=== PATIENT | male | born 1935 | race Caucasian/White ===

== ENCOUNTER 2017-07-21 00:12 | Inpatient (IN) | payer OTHER ==
[~2017-07-21] VITALS: Ht 170.2 cm; Wt 112.9 kg
[~2017-07-21 00:12] MED LIST: AUGMENTIN 500M500 MG PO; AUGMENTIN 875875 MG PO; COUMADIN 1 MG TA1 MG PO; COUMADIN 3 MG TA3 MG PO; COZAAR 25MG TAB25 MG PO; DEXAMETHASONE PO; FERROUS SULFAT325 M3 PO; FINASTERIDE5 M1 PO; GLIPIZIDE5 MG PO; HYDRODIURIL 112.5 M1 PO; LOTRISONE CREAM15 G1 TOP; METOPROLOL TART25 M1 PO; NORVASC5 M1 PO; PERCOCET 325 MG1 TA2 PO; PRINIVIL 5MG5 MG PO; TERAZOSIN HCL2 M1 PO; VALTREX 500MG500 MG PO; VITAMIN C500 M6 PO; VITAMIN D1000 IU PO; VITAMIN D250000 UNIT PO; ZOCOR40 M1 PO
[2017-07-21 01:11] LABS: ABSOLUTE BASOPHIL COUNT 0 /CUMM (0.0-0.2); ABSOLUTE EOSINOPHIL COUNT 0 /CUMM (0.0-0.7); ABSOLUTE GRANULOCYTE CT 4.8 /CUMM (1.4-6.5); ABSOLUTE LYMPH COUNT 0.8 /CUMM (1.2-3.4); ABSOLUTE MONOCYTE COUNT 0.1 /CUMM (0.10-0.60); BASOPHIL % 0.1 % (0.0-2.0); EOSINOPHIL % 0.7 % (0-5); HEMATOCRIT 39.4 % (42-52); MEAN CORPUSCULAR HGB 28.1 PG (27.0-31.0); MEAN CORPUSCULAR HGB CONC 32.5 G/DL (33.0-37.0); MEAN CORPUSCULAR VOLUME 86.4 FL (80.0-94.0); MEAN PLATELET VOLUME 7.5 FL (7.4-10.4); RBC DISTRIBUTION WIDTH 15.1 % (11.5-14.5); RED BLOOD CELL CT 4.56 /CUMM (4.70-6.10); WHITE BLOOD CELL COUNT 5.7 /CUMM (4.8-10.8)
--- NOTE | 2017-07-21 01:15 | ED GI/GU/ABDOMINAL COMPLAINT ---
History of Present Illness General Chief Complaint: General Adult Stated Complaint: RECTAL BLEEDING Source: patient, family, old records Exam Limitations: no limitations Vital Signs & Intake/Output Vital Signs & Intake/Output Vital Signs Date Time Temp Pulse Resp B/P B/P Pulse O2 O2 Flow FiO2 Mean Ox Delivery Rate 07/21 0327 96.0 95 22 136/85 07/21 0252 96.7 86 18 128/63 96 Room Air 07/21 0121 84 20 123/66 94 Room Air Room Air 07/21 0100 94 Room Air 07/21 0020 95.5 88 20 112/76 89 Room Air Allergies Coded Allergies: NO KNOWN ALLERGIES (09/05/13) Reconcile Medications Ascorbic Acid (Vitamin C) 500 MG TAB 1 TAB PO DAILY SUPPLEMENT (Reported) Cyanocobalamin (Vitamin B-12) 1,000 MCG TABLET 1 TAB PO DAILY SUPPLEMENT ( Reported) Donepezil HCl (Aricept) 10 MG TABLET 1 TAB PO QPM BRAIN (Reported) ERGOCALCIFEROL (VITAMIN D2) (Vitamin D2) 50,000 IU SGL 50,000 IU PO Q30D VITAMIN D SUPPLEMENT (Reported) Ferrous Sulfate 325 MG TAB 1 TAB PO DAILY SUPPLEMENT (Reported) Finasteride 5 MG TABLET 1 TAB PO DAILY bph (Reported) Furosemide (Lasix) 20 MG TABLET 1 TAB PO DAILY PRN LEG SWEELING (Reported) Losartan (Cozaar) 25 MG TAB 1 TAB PO DAILY HTN Lotrisone (Lotrisone Cream) 1 %-0.05 % CREAM..G. 1 KRIS TOP TID YEAST INFECTION apply to affected area(s) X 10 DAYS Magnesium Oxide 400 MG TABLET 1 TAB PO BID SUPPL (Reported) Metoprolol Tartrate 25 MG TABLET 1 TAB PO BID HEART (Reported) Simvastatin 40 MG TABLET 1 TAB PO QPM CHOLESTEROL (Reported) Terazosin HCl 2 MG CAPSULE 4 CAP PO QPM BP (Reported) Warfarin Sodium (Coumadin) 3 MG TAB 1 TAB PO DAILY blood thinner PLEASE contact MD to check INR regularly. Dose accordingly Triage Note: 81YO MALE TO TRIAGE W/CO RECTAL BLEEDING "ALL DAY THAT'S WORSE TONITE" Triage Nurses Notes Reviewed? yes Onset: Just prior to arrival Duration: hour(s):, constant, continues in ED Timing: recent history Quality/Severity: moderate, severe Activities at Onset: rest Prior Abdominal Problems: none Past Sexual History: Unobtainable at this time No Modifying Factors: none HPI: Shortly prior to admission patient had 4 episodes of bright red blood per rectum. He denies nausea vomiting diarrhea abdominal pain fever chills chest pain cough shortness of breath headache dysuria rash dizziness. Past History Travel History Traveled to [place] past 21 day No Medical History Any Pertinent Medical History? see below for history Neurological: NONE EENT: LARYNGEAL AND PHARYNGEAL HERPES Cardiovascular: AFIB, CHF, hypertension, HI CHOL Respiratory: LARYNGEAL HERPES Gastrointestinal: GERD Hepatic: NONE Renal: benign prost hyperplasia Musculoskeletal: BILATERAL KNEE REPLACEMENTS Psychiatric: NONE Endocrine: diabetes Blood Disorders: NONE Cancer(s): NONE DIRECTOR APPOINTMENT/Reproductive: NONE Other Medical Hx: AORTIC ANEURYSM History of MRSA: No History of VRE: No History of CDIFF: No Surgical History Surgical History: cholecystectomy, RIGHT NEPHRECTOMY LOBECTOMY Psychosocial History Who do you live with Spouse Services at Home None What is your primary language Panamanian Tobacco Use: Never used Family History Family History, If Any: Relation not specified for: *No pertinent family history Hx Contributory? No Review of Systems Review of Systems Constitutional: Reports: no symptoms. EENTM: Reports: no symptoms. Respiratory: Reports: no symptoms. Cardiovascular: Reports: no symptoms. GI: Reports: see HPI. Genitourinary: Reports: no symptoms. Musculoskeletal: Reports: no symptoms. Skin: Reports: no symptoms. Neurological/Psychological: Reports: no symptoms. Hematologic/Endocrine: Reports: no symptoms. Immunologic/Allergic: Reports: no symptoms. All Other Systems: Reviewed and Negative Physical Exam Physical Exam General Appearance: well developed/nourished, no apparent distress, alert, awake , anxious, mild distress, obese Head: atraumatic, normal appearance Eyes: Bilateral: normal appearance, PERRL, EOMI, normal inspection. Ears, Nose, Throat, Mouth: hearing grossly normal, moist mucous membrane Neck: normal inspection, supple, full range of motion, normal alignment Respiratory: normal breath sounds, chest non-tender, no respiratory distress, quiet respiration, lungs clear Cardiovascular: normal peripheral pulses, irregularly irregular, norml femoral pulses equa Peripheral Pulses: 4+ carotid (R), 4+ carotid (L) Gastrointestinal: normal bowel sounds, soft, non-tender, no organomegaly Rectal: normal rectal tone, blood without stool Male Genitals: normal genitalia Back: normal inspection, normal range of motion Extremities: normal range of motion, no ligament instability Neurologic/Psych: no motor/sensory deficits, awake, alert, oriented x 3, normal gait, normal mood/affect, 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 No Sepsis Present: No Sepsis Focused Exam Completed? No Progress Differential Diagnosis: diverticulitis, gastritis, hemorrhoids Plan of Care: Orders Procedure Date/time Status Nothing by Mouth 07/21 B Active CBC WITHOUT DIFFERENTIAL 07/21 1300 Active PARTIAL THROMBOPLASTIN TIME 07/21 0700 Active LACTIC ACID 07/21 0700 Active ICU LAB BUNDLE 07/21 0700 Active CBC WITHOUT DIFFERENTIAL 07/21 0700 Active PROTHROMBIN TIME 07/21 0600 Active PROTHROMBIN TIME 07/21 0457 Active BLOOD PRODUCT PICKUP 07/21 0444 Active US-EXT BILAT VENOUS DOPPLER 07/21 0403 Active LACTIC ACID 07/21 0352 Active Wound Care/Dressing 07/21 0343 Complete Weight 07/21 0343 Active VTE Mechanical Prophylaxis 07/21 0343 Active Vital Signs 07/21 0343 Active Turn and Reposition 07/21 0343 Active Drains/Tubes 07/21 0343 Complete Teach/Educate 07/21 0343 Active Skin Integrity Protocol 07/21 0343 Active Skin/Pressure Ulcer Assess (Sk 07/21 0343 Active Precautions 07/21 0343 Active Pain Treatment and Response 07/21 0343 Active Nutritional Intake, Monitor 07/21 0343 Active Isolation 07/21 0343 Active CIWA 07/21 0343 Active Patient Care Conference 07/21 0343 Active Activity/Ambulation 07/21 0343 Active BLOOD PRODUCT PICKUP 07/21 0333 Active Add-on Test (ER Only) 07/21 0316 Active Pathway - chart 07/21 0255 Active House Staff 07/21 0255 Active Code Status 07/21 0255 Complete Code Status 07/21 0255 Active LEUKOCYTE POOR (PACKED CELLS) 07/21 0246 Active BLOOD PRODUCT PICKUP 07/21 0238 Active Patient Data 07/21 0215 Active Admit to inpatient 07/21 0214 Active BLOOD PRODUCT PICKUP 07/21 0207 Active TYPE & SCREEN (NOT X-MATCH) 07/21 0202 Active FRESH FROZEN PLASMA 07/21 0202 Active Intake & Output 07/21 0122 Active TROPONIN LEVEL 07/21 0100 Complete MAGNESIUM 07/21 0100 Complete LACTIC ACID 07/21 0100 Complete PARTIAL THROMBOPLASTIN TIME 04/22 0039 Complete PROTHROMBIN TIME 07/21 38 Complete COMPREHENSIVE METABOLIC PANEL 07/21 38 Complete CBC WITHOUT DIFFERENTIAL 07/21 38 Complete EKG 07/21 38 Active Lab Add-on Test 07/21 UNK Active VTE Mechanical Prophylaxis 07/21 UNK Active Current Medications Sig/Sylvie Start time Last Medication Dose Stop Time Status Admin Sodium Chloride 1,000 ML Q13H 07/21 0500 AC (Normal Saline 0.9%) Acetaminophen 1,000 MG Q8P PRN 07/21 0315 AC (Ofirmev) N/A 1 UNIT (No Carrier) Ondansetron HCl 4 MG Q6P PRN 07/21 031 AC (Zofran) Pantoprazole Sodium 40 MG BID 07/21 0300 AC 07/21 (Protonix) 07/23 0901 0305 Anti-Inhibitor 2,400 UNIT ONCE 07/21 0130 AC 07/21 Coagulant Complex 07/21 0800 0411 (Kcentra) Anti-Inhibitor 2,400 UNIT ONCE 07/21 0000 CAN Coagulant Complex 07/21 2359 (Kcentra) Anti-Inhibitor 2,400 UNIT ONCE 07/21 0000 CAN Coagulant Complex 07/21 2359 (Kcentra) Laboratory Tests 07/21/17 0500: PT Pending, INR Pending 07/21/17 0100: Anion Gap 8, Estimated GFR 26 L, BUN/Creatinine Ratio 15.0, Glucose 171 H, Lactic Acid 2.3 H, Calcium 9.2, Magnesium 1.6, Total Bilirubin 0.6, AST 18, ALT 35, Alkaline Phosphatase 77, Troponin I 0.04, Total Protein 5.1 L, Albumin 2.8 L, Globulin 2.3, Albumin/Globulin Ratio 1.2, PT 24.3 H, INR 2.21 H, APTT 33, CBC w Diff NO MAN DIFF REQ, RBC 4.56 L, MCV 86.4, MCH 28.1, MCHC 32.5 L, RDW 15.1 H, MPV 7.5, Gran % 83.3 H, Lymphocytes % 13.9 L, Monocytes % 2.0, Eosinophils % 0.7, Basophils % 0.1, Absolute Granulocytes 4.8, Absolute Lymphocytes 0.8 L, Absolute Monocytes 0.1, Absolute Eosinophils 0, Absolute Basophils 0 Diagnostic Imaging: Viewed by Me: CT Scan. Discussed w/RAD: CT Scan. Radiology Impression: 1. Colonic and small bowel diverticulosis, without definite free air. 2. Left lower pole renal calculi without hydronephrosis. Status post right nephrectomy. 3. Trace right pleural effusion. Initial ED EKG: AFIB, no ST T wave changes Prior EKG: unchanged Rhythm Strip: atrial fibrillation Departure Departure Time of Disposition: 113 Disposition: STILL A PATIENT Condition: Stable Clinical Impression Primary Impression: GI bleed Secondary Impressions: Anticoagulated with warfarin Referrals: Allen Spain MD (PCP/Family) Departure Forms: Customer Survey General Discharge Information Admission Note Spoke With: Allen Spain MD Documentation of Exam: Documentation of any treatments & extenuating circumstances including Concerns Regarding Discharge (functional status, medication knowledge or non-compliance, living conditions, etc.) that warrant an admission rather than observation: GI evaluation serial lab exam ICU monitoring medication adjustment continuing care discharge planning.
[2017-07-21 01:19] LABS: PT 24.3 SEC (9.4-12.5); PTT 33 SEC (25-37)
[2017-07-21 01:30] LABS: GRANULOCYTE % 83.3 % (42.2-75.2); PLATELET COUNT 99 /CUMM (130-400)
--- NOTE | 2017-07-21 02:21 | History & Physical ---
See Addendum General Information and HPI MD Statement: I have seen and personally examined PEARL MAZA and documented this H&P. The patient is a 81 year old M who presented with a patient stated chief complaint of [gi bleed]. Source of Information: patient, family, old records Exam Limitations: no limitations History of Present Illness: 81-year-old gentleman with past medical history of DVT and A. 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 with CKD, hyperlipidemia, history of gallbladder removal, bilateral knee replacement chronic anemia, BPH, parotid tumor removal Came to the hospital with chief complaint of acute bleeding per rectum. Information was obtained from patient's and himself. According to the patient started having bloody bowel movement around 10:30 PM before, to the hospital which was bright red blood mixed with stools and he had 5 more episodes of bloody bowel movement before coming to the hospital and he had another episode of bloody bowel movement which was bright red blood mixed with the stool in the hospital. (totaL volume loss 1500 cc per ED staff). Patient has a history of atrial fibrillation and DVT post surgery was being taking warfarin daily. At the moment patient denied any episodes of nausea, vomiting, constipation, severe abdominal pain, chest pain, shortness of breath, fevers, chills, any episode of previous bloody bowel movements before. Last colonoscopy was in 2005 which is unavailable to retrieveSuhail Avendano in ED upon admission was temperature 96.7, pulse 86, respiration 18, blood pressure 128/63, pulse ox 96% on room air Labs are notable for hemoglobin 12.4, platelet 99 (chronically low), creatinine 2.4 which is baseline, BUN 36, chloride 109, lactic acid 2.3, total pr 5.1, INR 2.21 EKG showed A. fib, heart rate 80, QTc 448, flat T waves in precordial leads Allergies/Medications Allergies: Coded Allergies: NO KNOWN ALLERGIES (09/05/13) Home Med list Ascorbic Acid (Vitamin C) 500 MG TAB 1 TAB PO DAILY SUPPLEMENT (Reported) Cyanocobalamin (Vitamin B-12) 1,000 MCG TABLET 1 TAB PO DAILY SUPPLEMENT ( Reported) Donepezil HCl (Aricept) 10 MG TABLET 1 TAB PO QPM BRAIN (Reported) ERGOCALCIFEROL (VITAMIN D2) (Vitamin D2) 50,000 IU SGL 50,000 IU PO Q30D VITAMIN D SUPPLEMENT (Reported) Ferrous Sulfate 325 MG TAB 1 TAB PO DAILY SUPPLEMENT (Reported) Finasteride 5 MG TABLET 1 TAB PO DAILY bph (Reported) Furosemide (Lasix) 20 MG TABLET 1 TAB PO DAILY PRN LEG SWEELING (Reported) Losartan (Cozaar) 25 MG TAB 1 TAB PO DAILY HTN Lotrisone (Lotrisone Cream) 1 %-0.05 % CREAM..G. 1 KRIS TOP TID YEAST INFECTION apply to affected area(s) X 10 DAYS Magnesium Oxide 400 MG TABLET 1 TAB PO BID SUPPL (Reported) Metoprolol Tartrate 25 MG TABLET 1 TAB PO BID HEART (Reported) Simvastatin 40 MG TABLET 1 TAB PO QPM CHOLESTEROL (Reported) Terazosin HCl 2 MG CAPSULE 2 CAP PO QPM BP (Reported) Warfarin Sodium (Coumadin) 3 MG TAB 1 TAB PO DAILY blood thinner PLEASE contact MD to check INR regularly. 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 spouse Services at Home: None Primary Language: Setswana Functional Ability ADLs Independent: dressing, eating, toileting, bathing. Ambulation: independent IADLs Independent: shopping, housework, finances, food prep, telephone, transportation , medication admin. Sexual History Past Sexual History Unobtainable at this time Review of Systems Review of Systems Constitutional: Reports: see HPI. Exam & Diagnostic Data Last 24 Hrs of Vital Signs/I&O Vital Signs Date Time Temp Pulse Resp B/P B/P Pulse O2 O2 Flow FiO2 Mean Ox Delivery Rate 07/21 0327 96.0 95 22 136/85 07/21 0252 96.7 86 18 128/63 96 Room Air 07/21 0121 84 20 123/66 94 Room Air Room Air 07/21 0100 94 Room Air 07/21 0020 95.5 88 20 112/76 89 Room Air Intake & Output 07/21 0800 07/21 0000 07/20 1600 Intake Total 332 Output Total Balance 332 Intake, Blood 332 Product Number 1 Bowel Movements Patient 96.162 kg Weight Physical Exam General Appearance Alert, Oriented X3, Cooperative Cardiovascular Normal S1, Normal S2, irrigular Lungs limited exam clear in the front Abdomen distented mildy tender in umbilical area no-rebound Neurological Normal Speech, Strength at 5/5 X4 Ext Extremities severe BL leg edema due to CKD Assessment/Plan Assessment: 81-year-old gentleman with past medical history of DVT and A. 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 6 bloody bowel movement last one was in the hospital (totaL volume loss 1500 cc per ED staff). Patient has a history of atrial fibrillation and DVT post surgery was being taking warfarin daily. Last colonoscopy was in 2005 which is unavailable to retrieve. Last echocardiogram showed EF of 50-55%, last PFT showed mild obstructive disease, patient also has history of right upper lobe nodule removal in the lung. Avendano in ED upon admission was temperature 96.7, pulse 86, respiration 18, blood pressure 128/63, pulse ox 96% on room air Labs are notable for hemoglobin 12.4, platelet 99 (chronically low), creatinine 2.4 which is baseline, BUN 36, chloride 109, lactic acid 2.3, total pr 5.1, INR 2.21 EKG showed A. fib, heart rate 80, QTc 448, flat T waves in precordial leads Assessment Acute lower GI bleed Elevated lactic acid History of hypertension History of A. fib on warfarin History of dementia? History of BPH On magnesium supplementation Low platelets Plan Admit to ICU and check vitals q. 1 2 large-bore IV access Patient was being administered K Centra and 4 units of FFP which was prescribed by ED physician We will also give 2 units of blood We will put the patient on IV maintenance fluids after the blood products Hold all oral medications for now Patient heart rate increases we will give IV Lopressor 5 mg as needed Bowel prep per GI recommendation with 2 pills of Dulcolax and 1 gallon of GoLYTELY CBCs every 6 hours ICU bundle in the morning Trend lactic acid until normalized Check magnesium and troponin Stat CT of abdomen and pelvis to rule out any other pathology Watch the kidney function closely Ultrasound of the legs for DVT before using a LPS No anticoagulation for now CRCU consult in AM NPO, DNR/DNI, IV Tylenol for pain, no anticoagulation or alps for now until DVT has been ruled out As Ranked By This Provider Problem List: 1. GI bleed Core Measures/Misc (12/16) Acute Coronary Syndrome ACS Diagnosis: No Congestive Heart Failure Congestive Heart Failure Diagnosis No Cerebrovascular Accident CVA/TIA Diagnosis: No VTE (View Protocol) VTE Risk Factors Acute Medical Illness No Mechanical VTE Prophylaxis d/t DVT (suspected/known) (hx of DVT) No VTE Pharm Prophylaxis d/t Bleeding (Active) Sepsis (View protocol) Sepsis Present: No
[2017-07-21] MEDS ORDERED: VITAMIN B-121000 MC3 PO (02:49)
[2017-07-21] MEDS ORDERED: MAGNESIUM OXID400 M1 PO (02:49)
[2017-07-21] MEDS ORDERED: ARICEPT10 M1 PO (02:50)
[2017-07-21] MEDS ORDERED: LASIX20 M1 PO (02:50)
--- NOTE | 2017-07-21 04:58 | CT SCAN REPORT ---
EXAMINATION: CT ABDOMEN AND PELVIS WITHOUT CONTRAST CLINICAL INFORMATION: GI bleeding and abdominal pain, rule out perforation COMPARISON: 03/02/2015 TECHNIQUE: Multidetector volumetric imaging was performed from the superior aspect of the liver through the pubic symphysis. Sagittal and coronal reformatted images were obtained on the technologist's workstation. DLP: 1155.87 mGy-cm FINDINGS: LUNG BASES: There is mild dependent atelectasis at the lung bases. A trace right pleural effusion is present. LIVER, GALLBLADDER, AND BILIARY TREE: The liver is normal in size, shape, and attenuation. No focal hepatic lesion or biliary ductal dilatation is present. Patient is status post cholecystectomy. PANCREAS: There is partial fatty atrophy of the pancreas. SPLEEN: Unremarkable. ADRENAL GLANDS: Unremarkable. KIDNEYS AND URETERS: Patient is status post right nephrectomy. No left hydronephrosis. There is redemonstration of a few hypoattenuating left renal lesions favoring cysts, largest measuring approximately 9.0 cm in diameter. No hydronephrosis. There are left lower pole renal calculi measuring up to 0.9 cm. BLADDER: Minimally distended and grossly unremarkable. GASTROINTESTINAL TRACT: There is colonic diverticulosis without convincing evidence for diverticulitis. No evidence of bowel obstruction. Assessment for wall thickening in some segments of the colon is limited due to luminal collapse, though no significant pericolonic stranding is seen to strongly suggest a colitis. Small bowel diverticula are also noted in the right abdomen, without convincing evidence of perforation. The appendix is unremarkable. No free fluid is seen. ABDOMINAL WALL: Bilateral fat-containing inguinal hernias are noted. LYMPH NODES: No lymphadenopathy is seen, though assessment is somewhat limited in the absence of intravenous contrast. VASCULAR: There is atherosclerotic calcification along the aorta. An IVC filter is present. PELVIC VISCERA: Unremarkable. OSSEOUS STRUCTURES: Degenerative changes are noted in the spine. IMPRESSION: 1. Colonic and small bowel diverticulosis, without definite free air. 2. Left lower pole renal calculi without hydronephrosis. Status post right nephrectomy. 3. Trace right pleural effusion.
[2017-07-21 05:17] LABS: PT 11.9 SEC (9.4-12.5)
[2017-07-21 06:55] VITALS: BP 130/70
--- NOTE | 2017-07-21 06:57 | Cons- Gastroenterology ---
General Information and HPI Consulting Request Date of Consult: 07/21/17 Requested By: Allen Spain MD Reason for Consult: Hematochezia, change in bowel habits. Source of Information: patient Exam Limitations: no limitations History of Present Illness: Mr. Morgan is an 81 year old male with multiple medical problems including, but not limited to, afib and a DVT on anticoagulation and with an IVC filter and renal cell cancer s/p nephrectomy with baseline renal insufficiency who presented to the [facility] last night with complaints of painless rectal bleeding. He notes that he went to the bathroom last night at around 10:30 and just passed a profuse amount of bright red blood. Other then the urge to go to the bathroom he didn't have any abdominal pain. Prior to the bright red blood he was having normal bowel movements and he denies any significant constipation or diarrhea prior. He also denies ever having bleeding like this in the past. He continued to have bloody bowel movements so he came to the ER at which point he had another few bloody bowel movements which the ER estimated to be about 1.5 liters. He has not had any upper abdominal pain with eating, vomiting, or hematemesis and he also denies any significant heartburn or dysphagia. He has not had any black tarry stool. In the ER he was hemodynamically stable with a hgb of 13 and an INR of 2.2 for which he was given 2 units of FFP, one unit of PRBCs and vitamin K. He was transferred to the ICU where he was started on a bowel prep from which he initially passed brown stool, but is now passing liquid /bloody stool per nursing. His INR has improved to 1.1. Allergies/Medications Allergies: Coded Allergies: NO KNOWN ALLERGIES (09/05/13) Home Med List: Ascorbic Acid (Vitamin C) 500 MG TAB 1 TAB PO DAILY SUPPLEMENT (Reported) Cyanocobalamin (Vitamin B-12) 1,000 MCG TABLET 1 TAB PO DAILY SUPPLEMENT ( Reported) Donepezil HCl (Aricept) 10 MG TABLET 1 TAB PO QPM BRAIN (Reported) ERGOCALCIFEROL (VITAMIN D2) (Vitamin D2) 50,000 IU SGL 50,000 IU PO Q30D VITAMIN D SUPPLEMENT (Reported) Ferrous Sulfate 325 MG TAB 1 TAB PO DAILY SUPPLEMENT (Reported) Finasteride 5 MG TABLET 1 TAB PO DAILY bph (Reported) Furosemide (Lasix) 20 MG TABLET 1 TAB PO DAILY PRN LEG SWEELING (Reported) Losartan (Cozaar) 25 MG TAB 1 TAB PO DAILY HTN Lotrisone (Lotrisone Cream) 1 %-0.05 % CREAM..G. 1 KRIS TOP TID YEAST INFECTION apply to affected area(s) X 10 DAYS Magnesium Oxide 400 MG TABLET 1 TAB PO BID SUPPL (Reported) Metoprolol Tartrate 25 MG TABLET 1 TAB PO BID HEART (Reported) Simvastatin 40 MG TABLET 1 TAB PO QPM CHOLESTEROL (Reported) Terazosin HCl 2 MG CAPSULE 4 CAP PO QPM BP (Reported) Warfarin Sodium (Coumadin) 3 MG TAB 1 TAB PO DAILY blood thinner PLEASE contact MD to check INR regularly. Dose accordingly Current Medications: Current Medications Sig/Sylvie Start time Last Medication Dose Route Stop Time Status Admin Acetaminophen 1,000 MG Q8P PRN 07/21 314 AC N/A 1 UNIT IV Acetaminophen 650 MG Q6P PRN 07/21 0300 DC PO Anti-Inhibitor 2,400 UNIT ONCE 07/21 0130 AC 07/21 Coagulant Complex IV 07/21 0800 0411 Anti-Inhibitor 2,400 UNIT ONCE 07/21 0000 CAN Coagulant Complex IV 07/21 2359 Anti-Inhibitor 2,400 UNIT ONCE 07/21 0000 CAN Coagulant Complex IV 07/21 2359 Bisacodyl 10 MG ONE ONE 07/21 0330 DC 07/21 PO 07/21 033 0531 Non-Formulary 0 SEE ADMIN CRITERIA 07/21 014 DC Medication ANY Ondansetron HCl 4 MG Q6P PRN 07/21 031 AC IV Pantoprazole Sodium 0 .STK-MED ONE 07/21 0307 DC IV Pantoprazole Sodium 40 MG BID 07/21 0300 AC 07/21 IV 07/23 0901 0305 Phytonadione 0 .STK-MED ONE 07/21 0140 DC .ROUTE Phytonadione 10 MG ONCE ONE 07/21 0130 DC 07/21 IM 07/21 130 013 Polyethylene Glycol 1 GAL ONCE ONE 07/21 314 DC 07/21 PO 07/21 031 0640 Sodium Chloride 1,000 ML Q13H 07/21 0500 AC IV Past History Travel History Traveled to [place] past 21 day No Medical History Neurological: NONE EENT: LARYNGEAL AND PHARYNGEAL HERPES Cardiovascular: AFIB, CHF, hypertension, HI CHOL Respiratory: LARYNGEAL HERPES Gastrointestinal: GERD Hepatic: NONE Renal: benign prost hyperplasia Musculoskeletal: BILATERAL KNEE REPLACEMENTS Psychiatric: NONE Endocrine: diabetes Blood Disorders: NONE Cancer(s): NONE 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 spouse Services at Home: None Primary Language: Colombian Functional Ability ADLs Independent: dressing, eating, toileting, bathing. Ambulation: independent IADLs Independent: shopping, housework, finances, food prep, telephone, transportation , medication admin. Review of Systems Review of Systems Constitutional: Denies: fever, malaise, weakness, unexplained weight loss. EENTM: Denies: no symptoms. Cardiovascular: Denies: no symptoms. Respiratory: Denies: no symptoms. GI: Reports: see HPI. Genitourinary: Denies: no symptoms. Musculoskeletal: Denies: no symptoms. Skin: Denies: no symptoms. Neurological/Psychological: Denies: no symptoms. Hematologic/Endocrine: Reports: bleeding. Immunologic/Allergic: Denies: no symptoms. All Other Systems: Reviewed and Negative Exam & Diagnostic Data Vital Signs and I&O Vital Signs Date Time Temp Pulse Resp B/P B/P Pulse O2 O2 Flow FiO2 Mean Ox Delivery Rate 07/21 0500 97.1 106 22 149/68 96 Room Air Room Air 07/21 0327 96.0 95 22 136/85 07/21 0252 96.7 86 18 128/63 96 Room Air 07/21 0121 84 20 123/66 94 Room Air Room Air 07/21 0100 94 Room Air 07/21 0020 95.5 88 20 112/76 89 Room Air Intake & Output 07/21 1600 07/21 0400 07/20 1600 07/20 0400 07/19 1600 07/19 0400 Intake Total 632 Output Total Balance 632 Intake, Blood 632 Product Number 1 Bowel Movements Patient 212 lb Weight Physical Exam General Appearance: well developed/nourished, no apparent distress, alert, awake , comfortable Head: atraumatic, normal appearance Eyes: Bilateral: normal appearance. Ears, Nose, Throat: normal pharynx Neck: normal inspection, supple, full range of motion Respiratory: normal breath sounds, chest non-tender, no respiratory distress Cardiovascular: irregularly irregular Gastrointestinal: normal bowel sounds, soft, non-tender, no organomegaly Rectal: deferred Extremities: normal inspection, no edema Neurologic/Psych: no motor/sensory deficits, awake, alert, oriented x 3 Skin: intact, normal color, warm/dry Results Pertinent Lab Results: Laboratory Tests 07/21 07/21 0500 0100 Chemistry Sodium (137 - 145 mmol/L) 140 Potassium (3.5 - 5.1 mmol/L) 4.1 Chloride (98 - 107 mmol/L) 109 H Carbon Dioxide (22 - 30 mmol/L) 23 Anion Gap (5 - 16) 8 BUN (9 - 20 mg/dL) 36 H Creatinine (0.7 - 1.2 mg/dL) 2.4 H Estimated GFR (>60 ml/min) 26 L BUN/Creatinine Ratio (7 - 25 %) 15.0 Glucose (65 - 99 mg/dL) 171 H Lactic Acid (0.7 - 2.1 mmol/L) 2.3 H Calcium (8.4 - 10.2 mg/dL) 9.2 Magnesium (1.6 - 2.3 mg/dL) 1.6 Total Bilirubin (0.2 - 1.3 mg/dL) 0.6 AST (17 - 59 U/L) 18 ALT (21 - 72 U/L) 35 Alkaline Phosphatase (< 127 U/L) 77 Troponin I (<0.11 ng/ml) 0.04 Total Protein (6.3 - 8.2 g/dL) 5.1 L Albumin (3.5 - 5.0 g/dL) 2.8 L Globulin (1.9 - 4.2 gm/dL) 2.3 Albumin/Globulin Ratio (1.1 - 2.2 %) 1.2 Coagulation PT (9.4 - 12.5 SEC) 11.9 24.3 H INR (0.90 - 1.17) 1.09 2.21 H APTT (25 - 37 SEC) 33 Hematology CBC w Diff NO MAN DIFF REQ WBC (4.8 - 10.8 /CUMM) 5.7 RBC (4.70 - 6.10 /CUMM) 4.56 L Hgb (14.0 - 18.0 G/DL) 12.8 L Hct (42 - 52 %) 39.4 L MCV (80.0 - 94.0 FL) 86.4 MCH (27.0 - 31.0 PG) 28.1 MCHC (33.0 - 37.0 G/DL) 32.5 L RDW (11.5 - 14.5 %) 15.1 H Plt Count (130 - 400 /CUMM) 99 L MPV (7.4 - 10.4 FL) 7.5 Gran % (42.2 - 75.2 %) 83.3 H Lymphocytes % (20.5 - 51.1 %) 13.9 L Monocytes % (1.7 - 9.3 %) 2.0 Eosinophils % (0 - 5 %) 0.7 Basophils % (0.0 - 2.0 %) 0.1 Absolute Granulocytes (1.4 - 6.5 /CUMM) 4.8 Absolute Lymphocytes (1.2 - 3.4 /CUMM) 0.8 L Absolute Monocytes (0.10 - 0.60 /CUMM) 0.1 Absolute Eosinophils (0.0 - 0.7 /CUMM) 0 Absolute Basophils (0.0 - 0.2 /CUMM) 0 Imaging/Other Studies: SERVICE DATE: 07/21/17 EXAM TYPE: CAT - CT ABD & PELVIS W/O IV CONTRAS EXAMINATION: CT ABDOMEN AND PELVIS WITHOUT CONTRAST CLINICAL INFORMATION: GI bleeding and abdominal pain, rule out perforation COMPARISON: 03/02/2015 TECHNIQUE: Multidetector volumetric imaging was performed from the superior aspect of the liver through the pubic symphysis. Sagittal and coronal reformatted images were obtained on the technologist's workstation. DLP: 1155.87 mGy-cm FINDINGS: LUNG BASES: There is mild dependent atelectasis at the lung bases. A trace right pleural effusion is present. LIVER, GALLBLADDER, AND BILIARY TREE: The liver is normal in size, shape, and attenuation. No focal hepatic lesion or biliary ductal dilatation is present. Patient is status post cholecystectomy. PANCREAS: There is partial fatty atrophy of the pancreas. SPLEEN: Unremarkable. ADRENAL GLANDS: Unremarkable. KIDNEYS AND URETERS: Patient is status post right nephrectomy. No left hydronephrosis. There is redemonstration of a few hypoattenuating left renal lesions favoring cysts, largest measuring approximately 9.0 cm in diameter. No hydronephrosis. There are left lower pole renal calculi measuring up to 0.9 cm. BLADDER: Minimally distended and grossly unremarkable. GASTROINTESTINAL TRACT: There is colonic diverticulosis without convincing evidence for diverticulitis. No evidence of bowel obstruction. Assessment for wall thickening in some segments of the colon is limited due to luminal collapse, though no significant pericolonic stranding is seen to strongly suggest a colitis. Small bowel diverticula are also noted in the right abdomen, without convincing evidence of perforation. The appendix is unremarkable. No free fluid is seen. ABDOMINAL WALL: Bilateral fat-containing inguinal hernias are noted. LYMPH NODES: No lymphadenopathy is seen, though assessment is somewhat limited in the absence of intravenous contrast. VASCULAR: There is atherosclerotic calcification along the aorta. An IVC filter is present. PELVIC VISCERA: Unremarkable. OSSEOUS STRUCTURES: Degenerative changes are noted in the spine. IMPRESSION: 1. Colonic and small bowel diverticulosis, without definite free air. 2. Left lower pole renal calculi without hydronephrosis. Status post right nephrectomy. 3. Trace right pleural effusion. Assessment/Plan Assessment/Recommendations: Assessment: Mr. Morgan is an 81 year old male with CRI, afib/DVT on anticoagulation who presented to with hematochezia which is most likely secondary to a divertiulcar bleed and exacerbated by his anticoagulation. While he seems to have passed a significant amount of blood he has remained hemodynamically stable throughout the night and has only dropped his hgb by 1.3 grams so I am hopeful that the bleeding has stopped with reversal of his INR. As his last colonoscopy was in 2005 an occult malignancy is also possible, but this would be an unusual way for a colon cancer to present and his ct scan didn' t show any obvious masses. He also didn't have any evidence of bowel wall inflammation/thickening on the ct scan which makes ischemic, inflammatory or infectious colits all unikely as well. Other potential etiologies of his bleeding could be bleeding from AVMs, a dieulafoys lesion, hemorrhoidal bleeding or a rapid transit upper GI bleed although the latter possibility is highly unlikely considering how hemodynamically stable he. Recommendations: 1. Finish Golytle and give one tap water enema and keep NPO after the bowel prep in anticipation for a diagnostic/therapeutic colonoscopy later today. 2. Hold coumadin, but would not administer any further reversal agents for now (INR-1.1) 3. Avoid nsaids. 4. Continue ICU monitoring. 5. Maintain 2 large bore IVs at all times 6. Notify GI for signs of hemodynamically significant bleeding. I will continue to follow this patient and make further recommendations based on his clinical course and results of repeat blood work and the colonoscopy to be performed later today. Problem List: 1. GI bleed 2. Anticoagulated with warfarin 3. Diverticulitis Copies To: Allen Spain MD Consult Acknowledgment - Thank you for your consult request.
[2017-07-21 08:00] VITALS: BP 126/70
--- NOTE | 2017-07-21 08:16 | PN- Resident CRCU ---
Subjective HPI/CRCU Issues: Was comfortable this morning. Did not have any abdominal pain. He had 1 large bowel movement, which was bloody. Vitals remained stable. He has been getting GoLYTELY since this morning, and plan to do a colonoscopy in the afternoon. He has been evaluated by Dr. Grant-scudding inspector. 24 Hour Events: MAXIMUM TEMPERATURE 98.2 Pulse rate 78-106, Respiratory rate 16-20, Blood pressure: systolic 126-149 Diastolic 68-85 Pulse ox 96-97% on room air. Objective Vital Signs & I&O Last 8 Hrs of Vitals and I&O: Intake & Output 07/21 1600 Intake Total Output Total Balance Patient 249 lb Weight Weight Bed scale Measurement Method Exam General Appearance: alert Other Physical Findings: General Exam: AAOx3, No acute distress, Skin: No rashes, no breakdown;HEENT: PERRLA, EOMI;Neck: Supple, No JVD; No cervical lymphadenopathy;CVS: Reg Rate, Normal S1,S2, No MGR;Resp: Normal air entry, no ronchi/rales;Abdomen: Soft, No tenderness, Normal Bowel Sounds;Neuro: Normal Speech, Strength 5/5 b/l x 4 extremities, Sensation intact, CN III-XII NL, Reflexes 2+;Extremities: No cyanosis, no pedal edema Current Medications: Current Medications Sig/Sylvie Start time Last Medication Dose Route Stop Time Status Admin Acetaminophen 1,000 MG Q8P PRN 07/21 314 AC N/A 1 UNIT IV Acetaminophen 650 MG Q6P PRN 07/21 0300 DC PO Anti-Inhibitor 2,400 UNIT ONCE 07/21 0130 DC 07/21 Coagulant Complex IV 07/21 0800 0411 Anti-Inhibitor 2,400 UNIT ONCE 07/21 0000 CAN Coagulant Complex IV 07/21 2359 Anti-Inhibitor 2,400 UNIT ONCE 07/21 0000 CAN Coagulant Complex IV 07/21 2359 Bisacodyl 10 MG ONE ONE 07/21 0330 DC 07/21 PO 07/21 033 0531 Magnesium Sulfate 1 GM ONCE ONE 07/21 1630 AC 07/21 Dextrose/Water 100 ML IV 07/21 2028 1629 Non-Formulary 0 SEE ADMIN CRITERIA 07/21 0145 DC Medication ANY Ondansetron HCl 4 MG Q6P PRN 07/21 0315 AC IV Pantoprazole Sodium 0 .STK-MED ONE 07/21 0307 DC IV Pantoprazole Sodium 40 MG BID 07/21 030 AC 07/21 IV 07/23 0901 0942 Phytonadione 0 .STK-MED ONE 07/21 0140 DC .ROUTE Phytonadione 10 MG ONCE ONE 07/21 0130 DC 07/21 IM 07/21 130 0137 Polyethylene Glycol 1 GAL ONCE ONE 07/21 0315 DC 07/21 PO 07/21 0316 0640 Sodium Chloride 1,000 ML Q13H 07/21 0500 DC 07/21 IV 0814 Impression/Plan Impression/Problem List Impression: Mr. 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 He did not have any abdominal pain, nausea or vomiting. No prior similar complaints in the past. Last colonoscopy did not have any abnormal lesions, as per the pt ( report unavailable at this time ). As per the patient and his family, he had several episodes of bloody bowel movement prior to the hospital visit, and also had one large bloody movement with approximately 1500 mL as per the H&P. Since he had chronic renal insufficiency and an acute GI bleed, he received K Centra and FFP's while he was in the ED. Hemodynamics remained stable. At the time of admission-temperature 95.5, pulse rate 88, blood pressure 102/76 , pulse ox 89% on room air which improved to blood pressure 128/63, 96% on room air. Pertinent lab findings: W BC 5.7 (07/21/2017) Hemoglobin 12.8--11.5 Hematocrit 39.4--34.3, platelets (chronic thrombocytopenia 102-117k) 99-->96. Sodium 143, potassium 4.4, chloride 109, creatinine 2.3 Lactic acid 2.3-->1.5 INR 2.21--> 1.09 (s/p 2 FFP's and PCC ) CT abdomen and pelvis 07/21/2017: 1. Colonic and small bowel diverticulosis, without definite free air. 2. Left lower pole renal calculi without hydronephrosis. Status post right nephrectomy. 3. Trace right pleural effusion. Last Echocardiogram done in 02/13/2017 revealed Normal size left ventricle. Left ventricular wall thickness mildly increased. Borderline normal left ventricular ejection fraction estimated at 50-55%. Right ventricular systolic pressure estimated to be elevated at 45 mmHg. Etiology in his case that led to profuse lower GI bleed could likely be due to an acute diverticular bleed, but other causes such as AVMs are not completely ruled out. An upper GI bleed that traversed really fast could be possible but unlikely. Malignancy is in the differential, but no history suggestive of colonic malignancy. Problem list: #1 acute blood loss anemia #2 history of atrial fibrillation #3 history of dementia #4 thrombocytopenia #5 history of BPH Respiratory: Stable at this time. Continue to monitor #2 infectious-stable at this time. Continue to monitor PVCs. #3 circulated-hold antihypertensives at this time. Continue to monitor vitals closely. IV fluids if required. #4 hematology-monitor H&H closely given his GI bleed. The reason for his low platelet count is unclear at this time. Would restart his anticoagulation only after discussing with GI and cardiology, given his risks. Hold FFP's at this time. #5 metabolic-he has chronic renal insufficiency which continues to be stable at this time. Avoid fluid overload in him. #6 alimentary-he has a GI bleed, which likely is lower GI. He's been prepped with AnamLY for lower scope E/colonoscopy. [address]. Monitor hemodynamics closely. Housekeeping: DVT prophylaxis-Alps. CODE STATUS DNR/DNI Problem List: 1. History of parotidectomy 2. Anticoagulated with warfarin 3. GI bleed 4. Benign prostatic hyperplasia 5. Hypertension 6. Atrial fibrillation Pain Ratin Tomorrow's Labs & Rationales: cbc bep Plan DVT/Prophylaxis: mechanical
[2017-07-21 08:47] LABS: PT 12.7 SEC (9.4-12.5)
[2017-07-21 08:51] LABS: ABSOLUTE BASOPHIL COUNT 0 /CUMM (0.0-0.2); ABSOLUTE EOSINOPHIL COUNT 0 /CUMM (0.0-0.7); ABSOLUTE GRANULOCYTE CT 3.9 /CUMM (1.4-6.5); ABSOLUTE LYMPH COUNT 0.5 /CUMM (1.2-3.4); ABSOLUTE MONOCYTE COUNT 0.3 /CUMM (0.10-0.60); BASOPHIL % 0.2 % (0.0-2.0); EOSINOPHIL % 0.1 % (0-5); GRANULOCYTE % 82.9 % (42.2-75.2); MEAN CORPUSCULAR HGB 28.9 PG (27.0-31.0); MEAN CORPUSCULAR HGB CONC 33.5 G/DL (33.0-37.0); MEAN CORPUSCULAR VOLUME 86.2 FL (80.0-94.0); MEAN PLATELET VOLUME 7.9 FL (7.4-10.4); RBC DISTRIBUTION WIDTH 14.6 % (11.5-14.5); RED BLOOD CELL CT 3.98 /CUMM (4.70-6.10); WHITE BLOOD CELL COUNT 4.7 /CUMM (4.8-10.8)
--- NOTE | 2017-07-21 08:53 | Event Note ---
Event Note Event Note: Received a phone call from Dr. Arnold, hematology-sap basis consultant who discussed about resuming anticoagulation after the resolution of symptoms. Given his h/o of DVT and Afib, and was given K-centra; and would increase his risk of thrombosis (moslty from his abnromal thrombotic state, or increased risk of stroke from Afib) he would need to be watched carefully for any change in clinical status. Also, there should be an active discussion w/ the monumental stonemason and GI regarding resuming the anti-coagulation after evaluating the GI bleed either with lovenox or iv heparin. Discussed w/ the attending regarding resuming sc anticoagulation, given his risk factors.
[2017-07-21 09:17] LABS: HEMATOCRIT 34.3 % (42-52)
[2017-07-21 09:42] LABS: PLATELET COUNT 96 /CUMM (130-400)
--- NOTE | 2017-07-21 13:02 | Admission Certification ---
Admission Certification Certification Statement - As attending physician, I certify that at the time of - admission, based on clinical presentation, severity of - symptoms, need for further diagnostic testing and - therapeutic interventions, and risk of adverse outcomes - without in-hospital treatment, in my clinical assessment, - this patient requires an acute hospital stay for a minimum - of two nights or longer. I have also considered psychsocial - factors such as support system, advanced age, financial - issues, cognitive issues, and failed out-patient treatments, - past re-admission history, safety of patient, and lack of - compliance as applicable. Specific rationale supporting this admission is: Bright red blood per rectum in a patient on anticoagulation
--- NOTE | 2017-07-21 13:06 | PN- Att Addend ---
Attending Addendum Attending Brief Note 81-year-old white male with many comorbidities patient has history of atrial fibrillation on anticoagulation also history of DVT and renal carcinoma some chronic renal insufficiency. Comes in with Averell episodes of bright red blood through the rectum, no pain in the ER was witnessed having more rectal bleeding and he was admitted in stable condition. Anticoagulation was put on hold he had vitamin K and fresh frozen plasma with improvement of his INR it was seen emergently by GI and was transferred to the intensive care unit where the bowel prep was started, will have a colonoscopy shortly. Also the specialists was informed about the GI bleeding because the patient is on anticoagulation and the high risk for clots. Hopefully after the endoscopy and depending on the findings will be able to restart anticoagulation and he will be also type and screen in case he needs blood Current Medications Sig/Sylvie Start time Last Medication Dose Route Stop Time Status Admin Acetaminophen 1,000 MG Q8P PRN 07/21 314 AC N/A 1 UNIT IV Acetaminophen 650 MG Q6P PRN 07/21 0300 DC PO Anti-Inhibitor 2,400 UNIT ONCE 07/21 0130 DC 07/21 Coagulant Complex IV 07/21 0800 0411 Anti-Inhibitor 2,400 UNIT ONCE 07/21 0000 CAN Coagulant Complex IV 07/21 2359 Anti-Inhibitor 2,400 UNIT ONCE 07/21 0000 CAN Coagulant Complex IV 07/21 2359 Bisacodyl 10 MG ONE ONE 07/21 0330 DC 07/21 PO 07/21 0331 0531 Non-Formulary 0 SEE ADMIN CRITERIA 07/21 014 DC Medication ANY Ondansetron HCl 4 MG Q6P PRN 07/21 314 AC IV Pantoprazole Sodium 0 .STK-MED ONE 07/21 0307 DC IV Pantoprazole Sodium 40 MG BID 07/21 030 AC 07/21 IV 07/23 0901 0942 Phytonadione 0 .STK-MED ONE 07/21 0140 DC .ROUTE Phytonadione 10 MG ONCE ONE 07/21 0130 DC 07/21 IM 07/21 130 0137 Polyethylene Glycol 1 GAL ONCE ONE 07/21 314 DC 07/21 PO 07/216 0640 Sodium Chloride 1,000 ML Q13H 07/21 0500 AC 07/21 IV 0814 Vital Signs Date Time Temp Pulse Resp B/P B/P Pulse O2 O2 Flow FiO2 Mean Ox Delivery Rate 07/21 0818 97 Room Air 07/21 0800 98.2 78 16 126/70 96 Room Air 07/21 0655 97 Room Air 07/21 0655 98.3 87 20 130/70 97 Room Air Intake & Output 07/21 1600 Intake Total Output Total Balance Patient 249 lb Weight Weight Bed scale Measurement Method Abdomen is soft and not tender.
--- NOTE | 2017-07-21 14:04 | Proc Note Colonoscopy ---
Colonoscopy Procedure Medical History: unchanged (see meditech consult) Mental Status: alert/oriented Heart/Lung Eval Prior to Sedation: within normal limits Candidate for Sedation? Yes Date of Last Colonoscopy: 2005 Procedure Date: 07/21/17 Procedure Type: colonoscopy w/polypectomy Shafting Worker: Jose Grant MD ASA Classification: III Indications: Hematochezia. Instrument (Colonoscope): single channel Meds Received: MAC Patient's Tolerance: good Complications: none Extent Reached: cecum Prep: good Procedure: The risks of a colonoscopy was explained to the patient including, but not limited to, the risks of perforation, bleeding and/or a missed lesion and then written informed consent was obtained. After getting written informed consent the patient was placed in the left lateral decubitus position with pulse oximetry, cardiac monitoring, and supplemental oxygen was given. IV sedation was given until the desired effect was achieved. A rectal exam was performed which was normal. A high definition variable stiffness Olympus colonoscope was then inserted into the anus and advanced to the cecum with little difficulty. Retroflexed views were obtained and photodocumentation was obtained. Close inspection of the colonic mucosa was performed on insertion and withdrawal of the colonoscope with a withdrawal time that was adequate in length to closely inspect all folds and rosenthal of the colon. Findings: There were several scattered diverticula appreciated in the sigmoid and descending colon, but none of the visualized diverticula had stigmata of recent hemorrhage. There was no blood appreciated within the colon and there was bile seen coming from the ileocecal valve albeit the terminal ileum was not able to be intubated. There were numerous polyps scattered throughout the colon. In the sigmoid colon there was a 5 mm and 8 mm sessile polyp, in the descending colon there was a 7 mm sessile polyp, at the hepatic flexure there were two 1 cm pedunculated polyps and 5 mm sessile polyp, and there were 5 polyps in the ascending colon ranging in size from 5 mm to 1 cm. As there was no active bleeding appreciated all of those polyps were removed with snare polypectomy and monopolar cautery and were retrieved through the anus and through the scope and were sent to pathology for further evaluation. There were also approximately 5 diminutive polyps appreciated throughout the colon that were left intact. The remainder the visualized colonic mucosa was grossly unremarkable. There were no masses, or AVMs appreciated. Retroflexed views in the rectum revealed prominent internal hemorrhoids. Impression: 1. Findings suggestive of a resolving diverticular bleed. 2. 11 polyps status post removal via hot snare polypectomy. 3. Approximately 5 dimin[address] left in place. 4. Small internal hemorrhoids. 5. No active bleeding appreciated. Recommendations: 1. Would continue ICU monitoring today, but if he remains without active bleeding would transfer him to the medical floor. 2. Follow CBCs to 12 hours and transfuse as needed to maintain hemoglobin greater than 8. 3. Would hold his Coumadin for an additional 48-72 hours considering the polypectomies. 4. He should follow up the pathology results with me as an outpatient. 5. Advance diet as tolerated. 6. Notify GI for signs of overt hemodynamically significant GI bleeding. 7. Consideration may given to repeat his colonoscopy in 3 years for surveillance if it is clinically appropriate at that time. Followup Colonscopy Screen In: 3 years CC: Grabiel NAOPLES,Allen
--- NOTE | 2017-07-21 15:22 | ULTRASOUND REPORT ---
EXAMINATION: US TRIPLEX OF LOWER EXTREMITIES, BILATERAL CLINICAL INFORMATION: Bilateral leg swelling and history of DVT. COMPARISON: Duplex scan left lower extremity 10/13/2009. TECHNIQUE: Color-flow triplex imaging with spectral analysis and compression Doppler were performed on the lower extremities. FINDINGS: Respiratory variation, normal compression and augmented flow are noted throughout the lower extremities. The visualized common femoral vein, superficial femoral vein, profunda femoral vein, popliteal vein and midcalf peroneal and posterior tibial venous segments show no evidence of deep venous thrombosis. There is no Gamez's cyst. IMPRESSION: Normal triplex scan without evidence of deep venous thrombosis involving the lower extremities.
[2017-07-21 16:00] VITALS: BP 146/80
[2017-07-21 20:48] LABS: ABSOLUTE BASOPHIL COUNT 0 /CUMM (0.0-0.2); ABSOLUTE EOSINOPHIL COUNT 0 /CUMM (0.0-0.7); ABSOLUTE GRANULOCYTE CT 3.8 /CUMM (1.4-6.5); ABSOLUTE LYMPH COUNT 1.2 /CUMM (1.2-3.4); ABSOLUTE MONOCYTE COUNT 0.4 /CUMM (0.10-0.60); BASOPHIL % 0.3 % (0.0-2.0); EOSINOPHIL % 0.5 % (0-5); GRANULOCYTE % 70.4 % (42.2-75.2); MEAN CORPUSCULAR HGB 28.9 PG (27.0-31.0); MEAN CORPUSCULAR HGB CONC 33.5 G/DL (33.0-37.0); MEAN CORPUSCULAR VOLUME 86.2 FL (80.0-94.0); RBC DISTRIBUTION WIDTH 14.8 % (11.5-14.5); RED BLOOD CELL CT 3.83 /CUMM (4.70-6.10)
[2017-07-21 21:05] LABS: WHITE BLOOD CELL COUNT 6.3 /CUMM (4.8-10.8)
[2017-07-22] VITALS: BP 142/92
[2017-07-22 04:51] LABS: ABSOLUTE BASOPHIL COUNT 0 /CUMM (0.0-0.2); ABSOLUTE EOSINOPHIL COUNT 0 /CUMM (0.0-0.7); ABSOLUTE MONOCYTE COUNT 0.3 /CUMM (0.10-0.60); BASOPHIL % 0.3 % (0.0-2.0); EOSINOPHIL % 0.8 % (0-5); GRANULOCYTE % 67.7 % (42.2-75.2); HEMATOCRIT 32.7 % (42-52); MEAN CORPUSCULAR HGB 28.5 PG (27.0-31.0); MEAN CORPUSCULAR HGB CONC 33.4 G/DL (33.0-37.0); MEAN CORPUSCULAR VOLUME 85.3 FL (80.0-94.0); MEAN PLATELET VOLUME 7.6 FL (7.4-10.4); RBC DISTRIBUTION WIDTH 14.7 % (11.5-14.5); RED BLOOD CELL CT 3.83 /CUMM (4.70-6.10); WHITE BLOOD CELL COUNT 4.4 /CUMM (4.8-10.8)
[2017-07-22 05:01] LABS: PLATELET COUNT 97 /CUMM (130-400)
--- NOTE | 2017-07-22 07:19 | PN- CRCU ---
Subjective HPI/Critical Care Issues: #1 acute blood loss anemia most likely diverticular bleed #2 history of atrial fibrillation #3 history of dementia #4 thrombocytopenia #5 history of BPH 24 hour events Patient was seen and examined this morning. He was lying comfortably without any particular complaint. He had been bowel movement after colonoscopy. Colonoscopy was done yesterday by Dr. Grant that showed resolving diverticular bleed. 11 polyps were removed via hot snare polypectomy. His H&H this morning was 10.9 and 32.7. He remained hemodynamically stable. Objective Current Medications: Current Medications Sig/Sylvie Start time Last Medication Dose Route Stop Time Status Admin Acetaminophen 1,000 MG Q8P PRN 07/21 0315 AC N/A 1 UNIT IV Atorvastatin Calcium 20 MG 1700 07/22 1700 AC PO Chlorhexidine 1 GM .STK-MED ONE 07/22 0731 DC Gluconate TOP 07/22 0732 Doxazosin Mesylate 2 MG .STK-MED ONE 07/22 0030 DC PO 07/22 0031 Doxazosin Mesylate 2 MG QPM 07/21 2315 AC PO Furosemide 20 MG DAILY NEEDED PRN 07/22 0845 AC PO Losartan Potassium 25 MG DAILY 07/22 0900 AC PO Magnesium Sulfate 1 GM ONCE ONE 07/22 0545 AC 07/22 Dextrose/Water 100 ML IV 07/22 0944 0547 Magnesium Sulfate 1 GM ONCE ONE 07/21 1630 DC 07/21 Dextrose/Water 100 ML IV 07/21 2029 1629 Metoprolol Tartrate 25 MG BID 07/21 2127 AC 07/21 PO 2133 Ondansetron HCl 4 MG Q6P PRN 07/21 0315 AC IV Pantoprazole Sodium 40 MG BID 07/21 0300 AC 07/21 IV 07/23 0901 2133 Potassium Chloride 40 MEQ ONCE ONE 07/22 0545 DC 07/22 PO 07/22 0546 0547 Sodium Chloride 1,000 ML Q13H 07/21 0500 DC 07/21 IV 0814 Vital Signs & I&O Last 24 Hrs of Vitals and I&O: Vital Signs Date Time Temp Pulse Resp B/P B/P Pulse O2 O2 Flow FiO2 Mean Ox Delivery Rate 07/22 0800 97.2 65 20 152/80 94 Room Air 07/22 0400 97 Room Air 07/22 0000 97 Room Air 07/22 0000 98.4 66 18 142/92 97 Room Air 07/21 2133 82 22 178/98 07/22 1999 95 Room Air 07/21 1600 97.6 79 29 146/80 97 Room Air Intake & Output 07/22 1600 07/22 0800 07/22 0000 Intake Total 250 1035 Output Total 450 500 Balance -200 535 Intake, IV 130 175 Intake, Oral 120 860 Number 1 0 Bowel Movements Output, Urine 450 500 Exam General Appearance: no apparent distress, alert, awake Head: atraumatic Neck: supple Respiratory: chest non-tender, no respiratory distress, quiet respiration Cardiovascular: edema, irregularly irregular heart rate Abdomen: soft, non-tender, no organomegaly Extremities: bilateral 2+ pitting edema Neurologic/Psychiatric: awake, alert Results Last 24 Hrs of Lab Results: Laboratory Tests 07/22/17 0840: PT Pending, INR Pending 07/22/17 0428: Anion Gap 9, Estimated GFR 29 L, Glucose 121 H, Calcium 9.0, Phosphorus 3.1, Magnesium 1.6, Total Bilirubin 1.0, AST 15 L, ALT 32, Albumin 2.6 L, CBC w Diff NO MAN DIFF REQ, RBC 3.83 L, MCV 85.3, MCH 28.5, MCHC 33.4, RDW 14.7 H, MPV 7.6, Gran % 67.7, Lymphocytes % 23.6, Monocytes % 7.6, Eosinophils % 0.8, Basophils % 0.3, Absolute Granulocytes 3.0, Absolute Lymphocytes 1.0 L, Absolute Monocytes 0.3, Absolute Eosinophils 0, Absolute Basophils 0 07/21/17 2010: CBC w Diff NO MAN DIFF REQ, RBC 3.83 L, MCV 86.2, MCH 28.9, MCHC 33.5, RDW 14.8 H, MPV , Gran % 70.4, Lymphocytes % 22.0, Monocytes % 6.8, Eosinophils % 0.5, Basophils % 0.3, Absolute Granulocytes 3.8, Absolute Lymphocytes 1.2, Absolute Monocytes 0.4, Absolute Eosinophils 0, Absolute Basophils 0 07/21/17 1300: CBC w Diff Cancelled, WBC Cancelled, RBC Cancelled, Hgb Cancelled, Hct Cancelled , MCV Cancelled, MCH Cancelled, MCHC Cancelled, RDW Cancelled, Plt Count Cancelled, MPV Cancelled Impression/Plan Impression/Plan Impression/Plan: Mr. 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 He did not have any abdominal pain, nausea or vomiting. No prior similar complaints in the past. Last colonoscopy did not have any abnormal lesions, as per the pt ( report unavailable at this time ). As per the patient and his family, he had several episodes of bloody bowel movement prior to the hospital visit, and also had one large bloody movement with approximately 1500 mL as per the H&P. Since he had chronic renal insufficiency and an acute GI bleed, he received K Centra and FFP's while he was in the ED. Hemodynamics remained stable. At the time of admission-temperature 95.5, pulse rate 88, blood pressure 102/76 , pulse ox 89% on room air which improved to blood pressure 128/63, 96% on room air. Pertinent lab findings: W BC 5.7 (07/21/2017) Hemoglobin 12.8--11.5 Hematocrit 39.4--34.3, platelets (chronic thrombocytopenia 102-117k) 99-->96. Sodium 143, potassium 4.4, chloride 109, creatinine 2.3 Lactic acid 2.3-->1.5 INR 2.21--> 1.09 (s/p 2 FFP's and PCC ) CT abdomen and pelvis 07/21/2017: 1. Colonic and small bowel diverticulosis, without definite free air. 2. Left lower pole renal calculi without hydronephrosis. Status post right nephrectomy. 3. Trace right pleural effusion. Last Echocardiogram done in 02/13/2017 revealed Normal size left ventricle. Left ventricular wall thickness mildly increased. Borderline normal left ventricular ejection fraction estimated at 50-55%. Right ventricular systolic pressure estimated to be elevated at 45 mmHg. Etiology in his case that led to profuse lower GI bleed could likely be due to an acute diverticular bleed, but other causes such as AVMs are not completely ruled out. An upper GI bleed that traversed really fast could be possible but unlikely. Malignancy is in the differential, but no history suggestive of colonic malignancy. Problem list: #1 acute blood loss anemia #2 history of atrial fibrillation #3 history of dementia #4 thrombocytopenia #5 history of BPH Respiratory: Stable at this time. Continue to monitor #2 infectious-stable at this time. Continue to monitor PVCs. #3 circulated- Continue his antihypertensive at his home dose. We also gave him Lasix today given his edema #4 hematology-monitor H&H closely given his GI bleed. The reason for his low platelet count is unclear at this time. Would restart his anticoagulation only after discussing with GI and cardiology most likely tomorrow afternoon. #5 metabolic-he has chronic renal insufficiency which continues to be stable at this time. Avoid fluid overload in him. #6 alimentary-he has a GI bleed, status post colonoscopy revealed resolving diverticular bleed. He was also noted to have been polyps status post polypectomy. Patient will follow up with Dr. Grant as outpatient for follow- up. DVT prophylaxis-Alps. CODE STATUS DNR/DNI
[2017-07-22 08:00] VITALS: BP 152/80
[2017-07-22 09:13] LABS: PT 12.1 SEC (9.4-12.5)
--- NOTE | 2017-07-22 10:18 | RADIOLOGY REPORT ---
EXAMINATION: XR PORTABLE CHEST CLINICAL INFORMATION: Positive fluid balance/peripheral edema. Rule out pulmonary edema. COMPARISON: Chest x-ray dated 03/28/2017 and 03/02/2015. TECHNIQUE: Portable AP semierect view of the chest was obtained. FINDINGS: EKG leads overlie the chest. The cardiomediastinal silhouette is enlarged. Ectasia of the aorta is seen. Lungs bilaterally are symmetrically expanded. Mild bibasilar linear opacities are seen, possibly due to subsegmental atelectasis. No significant effusion, pneumothorax or focal consolidation. No pulmonary edema. Central pulmonary vessels are enlarged, unchanged. Bony structures unremarkable. IMPRESSION: 1. No evidence of pulmonary edema. 2. Mild bibasilar subsegmental atelectasis.
--- NOTE | 2017-07-22 10:35 | PN- Att Addend ---
Attending Addendum Attending Brief Note Patient is stable, no further bleeding and tolerated his colonoscopy well yesterday. Had several polyps removed, no active bleeding seen at that time, resolving diverticular bleed. Vital signs are stable, no fever. No changes on physical examination last hemoglobin 10.9 x 2 crit 32.7 patient stable to be transferred out of the intensive care unit, check with GI regarding advancing his diet. Monitor H&H holding anticoagulation as per GI, will restart when get okay from Dr. Grant. 24 TOTALS 07/22 0000 07/21 0000 Intake Total 6497 Output Total 800 Balance 5697 Intake, Blood 982 Product Intake, IV 1055 Intake, Oral 4460 Number 7 Bowel Movements Output, Urine 800 Patient 249 lb Weight Weight Bed scale Measurement Method Current Medications Sig/Sylvie Start time Last Medication Dose Route Stop Time Status Admin Acetaminophen 1,000 MG Q8P PRN 07/21 0315 AC N/A 1 UNIT IV Atorvastatin Calcium 20 MG 1700 07/22 1700 AC PO Chlorhexidine 1 GM .STK-MED ONE 07/22 0731 DC Gluconate TOP 07/22 0732 Doxazosin Mesylate 2 MG .STK-MED ONE 07/22 0030 DC PO 07/22 0031 Doxazosin Mesylate 2 MG QPM 07/21 2315 AC PO Furosemide 20 MG DAILY NEEDED PRN 07/22 0845 AC 07/22 PO 0930 Losartan Potassium 25 MG DAILY 07/22 0900 AC 07/22 PO 0927 Magnesium Sulfate 1 GM ONCE ONE 07/22 0545 DC 07/22 Dextrose/Water 100 ML IV 07/22 0944 0547 Magnesium Sulfate 1 GM ONCE ONE 07/21 1630 DC 07/21 Dextrose/Water 100 ML IV 07/21 2029 1629 Metoprolol Tartrate 12.5 MG BID 07/22 2100 DC PO Metoprolol Tartrate 12.5 MG BID 07/22 1000 AC PO Metoprolol Tartrate 25 MG BID 07/21 2127 DC 07/21 PO 2133 Ondansetron HCl 4 MG Q6P PRN 07/21 0315 AC IV Pantoprazole Sodium 40 MG BID 07/21 0300 AC 07/22 IV 07/23 0901 0928 Potassium Chloride 40 MEQ ONCE ONE 07/22 0545 DC 07/22 PO 07/22 0546 0547 Sodium Chloride 1,000 ML Q13H 07/21 0500 DC 07/21 IV 0814 Laboratory Tests 07/22/17 0840: PT 12.1, INR 1.11 07/22/17 0428: Anion Gap 9, Estimated GFR 29 L, Glucose 121 H, Calcium 9.0, Phosphorus 3.1, Magnesium 1.6, Total Bilirubin 1.0, AST 15 L, ALT 32, Albumin 2.6 L, CBC w Diff NO MAN DIFF REQ, RBC 3.83 L, MCV 85.3, MCH 28.5, MCHC 33.4, RDW 14.7 H, MPV 7.6, Gran % 67.7, Lymphocytes % 23.6, Monocytes % 7.6, Eosinophils % 0.8, Basophils % 0.3, Absolute Granulocytes 3.0, Absolute Lymphocytes 1.0 L, Absolute Monocytes 0.3, Absolute Eosinophils 0, Absolute Basophils 0 07/21/172009: CBC w Diff NO MAN DIFF REQ, RBC 3.83 L, MCV 86.2, MCH 28.9, MCHC 33.5, RDW 14.8 H, MPV , Gran % 70.4, Lymphocytes % 22.0, Monocytes % 6.8, Eosinophils % 0.5, Basophils % 0.3, Absolute Granulocytes 3.8, Absolute Lymphocytes 1.2, Absolute Monocytes 0.4, Absolute Eosinophils 0, Absolute Basophils 0 07/21/17 1300: CBC w Diff Cancelled, WBC Cancelled, RBC Cancelled, Hgb Cancelled, Hct Cancelled , MCV Cancelled, MCH Cancelled, MCHC Cancelled, RDW Cancelled, Plt Count Cancelled, MPV Cancelled 07/21/17 0745: Anion Gap 11, Estimated GFR 27 L, Glucose 190 H, Lactic Acid 1.5, Calcium 9.2, Phosphorus 3.3, Magnesium 1.6, Total Bilirubin 1.3, AST 14 L, ALT 29, Albumin 2.8 L, PT 12.7 H, INR 1.16, CBC w Diff NO MAN DIFF REQ, RBC 3.98 L, MCV 86.2, MCH 28.9, MCHC 33.5, RDW 14.6 H, MPV 7.9, Gran % 82.9 H, Lymphocytes % 11.0 L , Monocytes % 5.8, Eosinophils % 0.1, Basophils % 0.2, Absolute Granulocytes 3.9 , Absolute Lymphocytes 0.5 L, Absolute Monocytes 0.3, Absolute Eosinophils 0, Absolute Basophils 0 07/21/17 0730: Troponin I Cancelled 07/21/17 0700: APTT Cancelled 07/21/17 0500: PT 11.9, INR 1.09 07/21/17 0352: Lactic Acid Cancelled 07/21/17 0100: Anion Gap 8, Estimated GFR 26 L, BUN/Creatinine Ratio 15.0, Glucose 171 H, Lactic Acid 2.3 H, Calcium 9.2, Magnesium 1.6, Total Bilirubin 0.6, AST 18, ALT 35, Alkaline Phosphatase 77, Troponin I 0.04, Total Protein 5.1 L, Albumin 2.8 L, Globulin 2.3, Albumin/Globulin Ratio 1.2, PT 24.3 H, INR 2.21 H, APTT 33, CBC w Diff NO MAN DIFF REQ, RBC 4.56 L, MCV 86.4, MCH 28.1, MCHC 32.5 L, RDW 15.1 H, MPV 7.5, Gran % 83.3 H, Lymphocytes % 13.9 L, Monocytes % 2.0, Eosinophils % 0.7, Basophils % 0.1, Absolute Granulocytes 4.8, Absolute Lymphocytes 0.8 L, Absolute Monocytes 0.1, Absolute Eosinophils 0, Absolute Basophils 0 Microbiology 07/21 714 UPPER RESP: Surveillance Culture - COMP 07/21 714 GI: Surveillance Culture - COMP Vital Signs Date Time Temp Pulse Resp B/P B/P Pulse O2 O2 Flow FiO2 Mean Ox Delivery Rate 07/22 0927 80 164/90 07/22 0800 97.2 65 20 152/80 94 Room Air 07/22 0800 94 Room Air 07/22 0400 97 Room Air 07/22 0000 97 Room Air 07/22 0000 98.4 66 18 142/92 97 Room Air 07/21 2133 82 22 178/98 07/21 2000 95 Room Air 07/21 1600 97.6 79 29 146/80 97 Room Air
--- NOTE | 2017-07-22 10:47 | Cons- Cardiology ---
General Information and HPI Consulting Request Date of Consult: 07/22/17 Requested By: Allen Spain MD Reason for Consult: afib Source of Information: patient, family, old records History of Present Illness: This is a pleasant 81-year-old male with a past medical history of chronic atrial fib on Coumadin, mild nonischemic cardiomyopathy, chronic renal insufficiency, renal cancer with a prior nephrectomy, prior DVT with IVC filter in place, ascending aortic aneurysm, partial lung resection, hypertension, and hyperlipidemia who presented to [facility] with a chief complaint of bright red blood per rectum. He denied associated chest pain, dyspnea, palpitations. Denies prior episodes of major GI bleeding. He did undergo colonoscopy which showed evidence of likely resolving diverticular bleed. He denies headache, slurring of speech, or focal weakness. Denies orthopnea or paroxysmal nocturnal dyspnea. Allergies/Medications Allergies: Coded Allergies: NO KNOWN ALLERGIES (09/05/13) Home Med List: Ascorbate Calcium (Vitamin C) 500 MG TABLET 1 TAB PO DAILY VITAMIN SUPPORT ( Reported) Cyanocobalamin (Vitamin B-12) 1,000 MCG TABLET 1 TAB PO DAILY SUPPLEMENT ( Reported) Donepezil HCl (Aricept) 10 MG TABLET 1 TAB PO QPM BRAIN (Reported) Ergocalciferol (Vitamin D2) (Vitamin D2) 50,000 UNIT CAPSULE 1 CAP PO Q30D VITAMIN SUPPORT (Reported) Ferrous Sulfate 325 MG (65 MG IRON) TABLET 1 TAB PO DAILY IRON, VITAMIN ( Reported) Finasteride 5 MG TABLET 1 TAB PO DAILY bph (Reported) Furosemide (Lasix) 20 MG TABLET 1 TAB PO DAILY PRN LEG SWEELING (Reported) Losartan (Cozaar) 25 MG TAB 1 TAB PO DAILY HTN Lotrisone (Lotrisone Cream) 1 %-0.05 % CREAM..G. 1 KRIS TOP TID YEAST INFECTION apply to affected area(s) X 10 DAYS Magnesium Oxide 400 MG TABLET 1 TAB PO BID SUPPL (Reported) Metoprolol Tartrate 25 MG TABLET 1 TAB PO BID HEART (Reported) Simvastatin (Zocor*) 40 MG TABLET 1 TAB PO QPM CHOLESTEROL (Reported) Terazosin HCl 2 MG CAPSULE 2 CAP PO QPM BP (Reported) Warfarin Sodium (Coumadin) 3 MG TAB 1 TAB PO DAILY blood thinner PLEASE contact MD to check INR regularly. Dose accordingly Current Medications: Current Medications Sig/Sylvie Start time Last Medication Dose Route Stop Time Status Admin Acetaminophen 1,000 MG Q8P PRN 07/21 0315 AC N/A 1 UNIT IV Atorvastatin Calcium 20 MG 1700 07/22 1700 AC PO Chlorhexidine 1 GM .STK-MED ONE 07/22 0731 DC Gluconate TOP 07/22 0732 Doxazosin Mesylate 2 MG .STK-MED ONE 07/22 0030 DC PO 07/22 0031 Doxazosin Mesylate 2 MG QPM 07/21 2315 AC PO Furosemide 20 MG DAILY NEEDED PRN 07/22 0845 AC 07/22 PO 0930 Losartan Potassium 25 MG DAILY 07/22 0900 AC 07/22 PO 0927 Magnesium Sulfate 1 GM ONCE ONE 07/22 0545 DC 07/22 Dextrose/Water 100 ML IV 07/22 0944 0547 Magnesium Sulfate 1 GM ONCE ONE 07/21 1630 DC 07/21 Dextrose/Water 100 ML IV 07/21 2029 1629 Metoprolol Tartrate 12.5 MG BID 07/22 2100 DC PO Metoprolol Tartrate 12.5 MG BID 07/22 1000 AC PO Metoprolol Tartrate 25 MG BID 07/21 2127 DC 07/21 PO 2133 Ondansetron HCl 4 MG Q6P PRN 07/21 0315 AC IV Pantoprazole Sodium 40 MG BID 07/21 0300 AC 07/22 IV 07/23 0901 0928 Potassium Chloride 40 MEQ ONCE ONE 07/22 0545 DC 07/22 PO 07/22 0546 0547 Sodium Chloride 1,000 ML Q13H 07/21 0500 DC 07/21 IV 0814 Review of Systems Review of Systems: Review of systems as per HPI. The remainder of a 10 point review of systems was reviewed and was otherwise negative. 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 Home Who Do You Live With? spouse Services at Home: None Primary Language: German Smoking Status: Current Everyday Smoker Functional Ability ADLs Independent: dressing, eating, toileting, bathing. Ambulation: independent IADLs Independent: shopping, housework, finances, food prep, telephone, transportation , medication admin. Exam & Diagnostic Data Vital Signs and I&O Vital Signs Date Time Temp Pulse Resp B/P B/P Pulse O2 O2 Flow FiO2 Mean Ox Delivery Rate 07/22 0927 80 164/90 07/22 0800 97.2 65 20 152/80 94 Room Air 07/22 0800 94 Room Air 07/22 0400 97 Room Air 07/22 0000 97 Room Air 07/22 0000 98.4 66 18 142/92 97 Room Air 07/21 2133 82 22 178/98 07/21 2000 95 Room Air 07/21 1600 97.6 79 29 146/80 97 Room Air Intake & Output 07/22 1600 07/22 0800 07/22 0000 07/21 1600 07/21 0800 07/21 0000 Intake Total 250 1035 4180 1282 Output Total 450 500 300 Balance -104 149 4337 982 Intake, Blood 982 Product Intake, IV 130 175 880 Intake, Oral 074 888 9652 300 Number 1 0 6 1 Bowel Movements Output, Urine 450 500 300 Patient 249 lb 212 lb Weight Weight Bed scale Measurement Method Physical Exam: General: no apparent distress. Alert. Eyes: No obvious scleral icterus. HEENT: No jugular venous distention or abnormal jugular venous pulsations. Cardiovascular: Normal intensity S1/S2. Irregular Respiratory: Lungs clear to auscultation bilaterally. Abdomen: Soft, nontender with no guarding or rebound tenderness. Musculoskeletal: No clubbing or cyanosis noted; trace lower extremity edema Skin: Warm Neurologic: No gross focal deficits noted. Labs/Alber Results: Laboratory Tests 07/22 07/22 0840 0428 Chemistry Sodium (137 - 145 mmol/L) 142 Potassium (3.5 - 5.1 mmol/L) 3.6 Chloride (98 - 107 mmol/L) 111 H Carbon Dioxide (22 - 30 mmol/L) 22 Anion Gap (5 - 16) 9 BUN (9 - 20 mg/dL) 30 H Creatinine (0.7 - 1.2 mg/dL) 2.2 H Estimated GFR (>60 ml/min) 29 L Glucose (65 - 99 mg/dL) 121 H Calcium (8.4 - 10.2 mg/dL) 9.0 Phosphorus (2.5 - 4.5 mg/dL) 3.1 Magnesium (1.6 - 2.3 mg/dL) 1.6 Total Bilirubin (0.2 - 1.3 mg/dL) 1.0 AST (17 - 59 U/L) 15 L ALT (21 - 72 U/L) 32 Albumin (3.5 - 5.0 g/dL) 2.6 L Coagulation PT (9.4 - 12.5 SEC) 12.1 INR (0.90 - 1.17) 1.11 Hematology CBC w Diff NO MAN DIFF REQ WBC (4.8 - 10.8 /CUMM) 4.4 L RBC (4.70 - 6.10 /CUMM) 3.83 L Hgb (14.0 - 18.0 G/DL) 10.9 L Hct (42 - 52 %) 32.7 L MCV (80.0 - 94.0 FL) 85.3 MCH (27.0 - 31.0 PG) 28.5 MCHC (33.0 - 37.0 G/DL) 33.4 RDW (11.5 - 14.5 %) 14.7 H Plt Count (130 - 400 /CUMM) 97 L MPV (7.4 - 10.4 FL) 7.6 Gran % (42.2 - 75.2 %) 67.7 Lymphocytes % (20.5 - 51.1 %) 23.6 Monocytes % (1.7 - 9.3 %) 7.6 Eosinophils % (0 - 5 %) 0.8 Basophils % (0.0 - 2.0 %) 0.3 Absolute Granulocytes (1.4 - 6.5 /CUMM) 3.0 Absolute Lymphocytes (1.2 - 3.4 /CUMM) 1.0 L Absolute Monocytes (0.10 - 0.60 /CUMM) 0.3 Absolute Eosinophils (0.0 - 0.7 /CUMM) 0 Absolute Basophils (0.0 - 0.2 /CUMM) 0 07/21 1300 Hematology CBC w Diff NO MAN DIFF REQ Cancelled WBC (4.8 - 10.8 /CUMM) 6.3 Cancelled RBC (4.70 - 6.10 /CUMM) 3.83 L Cancelled Hgb (14.0 - 18.0 G/DL) 11.1 L Cancelled Hct (42 - 52 %) 33.0 L Cancelled MCV (80.0 - 94.0 FL) 86.2 Cancelled MCH (27.0 - 31.0 PG) 28.9 Cancelled MCHC (33.0 - 37.0 G/DL) 33.5 Cancelled RDW (11.5 - 14.5 %) 14.8 H Cancelled Plt Count (/CUMM) Cancelled MPV (7.4 - 10.4 FL) Cancelled Gran % (42.2 - 75.2 %) 70.4 Lymphocytes % (20.5 - 51.1 %) 22.0 Monocytes % (1.7 - 9.3 %) 6.8 Eosinophils % (0 - 5 %) 0.5 Basophils % (0.0 - 2.0 %) 0.3 Absolute Granulocytes (1.4 - 6.5 /CUMM) 3.8 Absolute Lymphocytes (1.2 - 3.4 /CUMM) 1.2 Absolute Monocytes (0.10 - 0.60 /CUMM) 0.4 Absolute Eosinophils (0.0 - 0.7 /CUMM) 0 Absolute Basophils (0.0 - 0.2 /CUMM) 0 07/21 07/21 07/21 0745 0730 0700 Chemistry Sodium (137 - 145 mmol/L) 143 Potassium (3.5 - 5.1 mmol/L) 4.4 Chloride (98 - 107 mmol/L) 109 H Carbon Dioxide (22 - 30 mmol/L) 23 Anion Gap (5 - 16) 11 BUN (9 - 20 mg/dL) 36 H Creatinine (0.7 - 1.2 mg/dL) 2.3 H Estimated GFR (>60 ml/min) 27 L Glucose (65 - 99 mg/dL) 190 H Lactic Acid (0.7 - 2.1 mmol/L) 1.5 Calcium (8.4 - 10.2 mg/dL) 9.2 Phosphorus (2.5 - 4.5 mg/dL) 3.3 Magnesium (1.6 - 2.3 mg/dL) 1.6 Total Bilirubin (0.2 - 1.3 mg/dL) 1.3 AST (17 - 59 U/L) 14 L ALT (21 - 72 U/L) 29 Troponin I Cancelled Albumin (3.5 - 5.0 g/dL) 2.8 L Coagulation PT (9.4 - 12.5 SEC) 12.7 H INR (0.90 - 1.17) 1.16 APTT Cancelled Hematology CBC w Diff NO MAN DIFF REQ WBC (4.8 - 10.8 /CUMM) 4.7 L RBC (4.70 - 6.10 /CUMM) 3.98 L Hgb (14.0 - 18.0 G/DL) 11.5 L Hct (42 - 52 %) 34.3 L MCV (80.0 - 94.0 FL) 86.2 MCH (27.0 - 31.0 PG) 28.9 MCHC (33.0 - 37.0 G/DL) 33.5 RDW (11.5 - 14.5 %) 14.6 H Plt Count (130 - 400 /CUMM) 96 L MPV (7.4 - 10.4 FL) 7.9 Gran % (42.2 - 75.2 %) 82.9 H Lymphocytes % (20.5 - 51.1 %) 11.0 L Monocytes % (1.7 - 9.3 %) 5.8 Eosinophils % (0 - 5 %) 0.1 Basophils % (0.0 - 2.0 %) 0.2 Absolute Granulocytes (1.4 - 6.5 /CUMM) 3.9 Absolute Lymphocytes (1.2 - 3.4 /CUMM) 0.5 L Absolute Monocytes (0.10 - 0.60 /CUMM) 0.3 Absolute Eosinophils (0.0 - 0.7 /CUMM) 0 Absolute Basophils (0.0 - 0.2 /CUMM) 0 07/21 07/21 07/21 0500 0352 0100 Chemistry Sodium (137 - 145 mmol/L) 140 Potassium (3.5 - 5.1 mmol/L) 4.1 Chloride (98 - 107 mmol/L) 109 H Carbon Dioxide (22 - 30 mmol/L) 23 Anion Gap (5 - 16) 8 BUN (9 - 20 mg/dL) 36 H Creatinine (0.7 - 1.2 mg/dL) 2.4 H Estimated GFR (>60 ml/min) 26 L BUN/Creatinine Ratio (7 - 25 %) 15.0 Glucose (65 - 99 mg/dL) 171 H Lactic Acid (0.7 - 2.1 mmol/L) Cancelled 2.3 H Calcium (8.4 - 10.2 mg/dL) 9.2 Magnesium (1.6 - 2.3 mg/dL) 1.6 Total Bilirubin (0.2 - 1.3 mg/dL) 0.6 AST (17 - 59 U/L) 18 ALT (21 - 72 U/L) 35 Alkaline Phosphatase (< 127 U/L) 77 Troponin I (<0.11 ng/ml) 0.04 Total Protein (6.3 - 8.2 g/dL) 5.1 L Albumin (3.5 - 5.0 g/dL) 2.8 L Globulin (1.9 - 4.2 gm/dL) 2.3 Albumin/Globulin Ratio (1.1 - 2.2 %) 1.2 Coagulation PT (9.4 - 12.5 SEC) 11.9 24.3 H INR (0.90 - 1.17) 1.09 2.21 H APTT (25 - 37 SEC) 33 Hematology CBC w Diff NO MAN DIFF REQ WBC (4.8 - 10.8 /CUMM) 5.7 RBC (4.70 - 6.10 /CUMM) 4.56 L Hgb (14.0 - 18.0 G/DL) 12.8 L Hct (42 - 52 %) 39.4 L MCV (80.0 - 94.0 FL) 86.4 MCH (27.0 - 31.0 PG) 28.1 MCHC (33.0 - 37.0 G/DL) 32.5 L RDW (11.5 - 14.5 %) 15.1 H Plt Count (130 - 400 /CUMM) 99 L MPV (7.4 - 10.4 FL) 7.5 Gran % (42.2 - 75.2 %) 83.3 H Lymphocytes % (20.5 - 51.1 %) 13.9 L Monocytes % (1.7 - 9.3 %) 2.0 Eosinophils % (0 - 5 %) 0.7 Basophils % (0.0 - 2.0 %) 0.1 Absolute Granulocytes (1.4 - 6.5 /CUMM) 4.8 Absolute Lymphocytes (1.2 - 3.4 /CUMM) 0.8 L Absolute Monocytes (0.10 - 0.60 /CUMM) 0.1 Absolute Eosinophils (0.0 - 0.7 /CUMM) 0 Absolute Basophils (0.0 - 0.2 /CUMM) 0 Diagnostic Data EKG Results Tracing was personally reviewed and shows atrial fibrillation at 97 bpm with nonspecific STT abnormality and left axis deviation CXR Results 1. No evidence of pulmonary edema. 2. Mild bibasilar subsegmental atelectasis. Other Results Telemetry tracings were personally reviewed and showed atrial fibrillation with grossly controlled ventricular response rate Assessment/Plan Assessment/Plan 1. GI bleed with colonoscopy showing likely resolving diverticular bleed 2. Chronic atrial fibrillation on Coumadin 3. History of mild nonischemic cardiomyopathy 4. History of chronic renal insufficiency 5. hx of renal cancer with a prior nephrectomy 6. History of ascending aortic aneurysm 7. prior DVT with IVC filter in place 8. History of partial lung resection 9. History of hypertension/hyperlipidemia The patient is status post colonoscopy with no evidence of ongoing bleeding. He is hemodynamically stable and his outpatient antihypertensives are being resumed. Coumadin is currently on hold with a plan to resume when cleared by GI. He shows no evidence of decompensated congestive heart failure or acute coronary syndrome at this time. His average heart rate on telemetry remains within goal limits. Francisco Galloway MD [facility] Consult Acknowledgment - Thank you for your consult request.
--- NOTE | 2017-07-22 13:26 | PN- Gastroenterology ---
Assessment/Plan GI Assessment/Recommendations: Assessment: Mr. Morgan is an 81 year old male with multiple medical problems admitted for a LGIB on early Saturday mornign s/p a colonoscopy yesterday which didn't reveal any active bleeding, but this did show about 11 polyps that were removed considering the lack of active bleeding and his anticoagulation had been reversed. Since the procedure he has been without any further bleeding and he has only had a minimal drop in his hgb so I feel he either had a self limited diverticular or hemorrhoidal bleed that resolved with stopping his anticoagulation. Of note, in addition to the polyps that were removed there a few other dimniuitive ones which were left in place so it would not be unreasonable to entertain a repeat colonoscopy for in a few years, but considering his othe comorbities and that he will be 84 when he is due for his repeat exam I would only do it if it is clinically appropriate at that time and if he is willing. Recommendations: 1. Advance to a high fiber diet as tolerated. 2. Hold coumadin for another 48 hours (72hours total) in light of the polypectomies and if medically indicated ok to restart then 3. Ok to transfer pt out of the ICU 4. Notify GI for signs of hemodynamically significant overt gi bleeding. 5. Follow up pathology results as an outpatient and consideration maybe given for a repeat colonoscopy in 3 years if it is clinically appropriate at that time and if he is willing. 6. D/C IV protonix. I will sign off at this time and would ask that GI be recontacted for any recurrent bleeding or any new GI issues which may arise on this hospitalization. Problem List: 1. Diverticulitis 2. GI bleed 3. Anticoagulated with warfarin Subjective Subjective: pt s/p colonoscopy yesterday which was negative for active bleeednig and during which time about 11 polyps were removed; he has not had any significant bleeding since the procedure and he is tolerating a diet. He denies any abdominal pain. Objective Vital Signs and I&Os Vital Signs Date Time Temp Pulse Resp B/P B/P Pulse O2 O2 Flow FiO2 Mean Ox Delivery Rate 07/22 1200 94 Room Air 07/22 1104 87 143/80 07/22 0927 80 164/90 07/22 0800 97.2 65 20 152/80 94 Room Air 07/22 0800 94 Room Air 07/22 0400 97 Room Air 07/22 0000 97 Room Air 07/22 0000 98.4 66 18 142/92 97 Room Air 07/21 2133 82 22 178/98 07/22 1999 95 Room Air 07/21 1600 97.6 79 29 146/80 97 Room Air Intake & Output 07/22 1600 07/22 0400 07/21 1600 07/21 0400 07/20 1600 07/20 0400 Intake Total 250 1035 4830 632 Output Total 450 500 300 Balance -256 060 4224 632 Intake, Blood 350 632 Product Intake, IV 130 175 880 Intake, Oral 311 790 7385 Number 1 0 6 1 Bowel Movements Output, Urine 450 500 300 Patient 249 lb 212 lb Weight Weight Bed scale Measurement Method Physical Exam General Appearance: well developed/nourished, no apparent distress, alert, awake , comfortable Head: atraumatic Neck: normal inspection, supple, full range of motion Respiratory: normal breath sounds, chest non-tender, no respiratory distress Cardiovascular: regular rate/rhythm Abdomen: normal bowel sounds, soft, non-tender Skin: intact, normal color, warm/dry Current Medications: Current Medications Sig/Sylvie Start time Last Medication Dose Route Stop Time Status Admin Acetaminophen 1,000 MG Q8P PRN 07/21 0315 AC N/A 1 UNIT IV Atorvastatin Calcium 20 MG 1700 07/22 1700 AC PO Chlorhexidine 1 GM .STK-MED ONE 07/22 0731 DC Gluconate TOP 07/22 0732 Doxazosin Mesylate 2 MG .STK-MED ONE 07/22 0030 DC PO 07/22 0031 Doxazosin Mesylate 2 MG QPM 07/21 2315 AC PO Furosemide 20 MG DAILY NEEDED PRN 07/22 0845 AC 07/22 PO 0930 Losartan Potassium 25 MG DAILY 07/22 0900 AC 07/22 PO 0927 Magnesium Sulfate 1 GM ONCE ONE 07/22 0545 DC 07/22 Dextrose/Water 100 ML IV 07/22 0944 0547 Magnesium Sulfate 1 GM ONCE ONE 07/21 1630 DC 07/21 Dextrose/Water 100 ML IV 07/21 202 1629 Metoprolol Tartrate 12.5 MG BID 07/22 2100 DC PO Metoprolol Tartrate 12.5 MG BID 07/22 1000 AC 07/22 PO 1104 Metoprolol Tartrate 25 MG BID 07/21 2126 DC 07/21 PO 2133 Ondansetron HCl 4 MG Q6P PRN 07/215 AC IV Pantoprazole Sodium 40 MG BID 07/21 0300 AC 07/22 IV 07/23 0901 0928 Potassium Chloride 40 MEQ ONCE ONE 07/22 0545 DC 07/22 PO 07/22 0546 0547 Sodium Chloride 1,000 ML Q13H 07/21 0500 DC 07/21 IV 0814 Results Pertinent Lab Results: Laboratory Tests 07/22 07/22 0840 0428 Chemistry Sodium (137 - 145 mmol/L) 142 Potassium (3.5 - 5.1 mmol/L) 3.6 Chloride (98 - 107 mmol/L) 111 H Carbon Dioxide (22 - 30 mmol/L) 22 Anion Gap (5 - 16) 9 BUN (9 - 20 mg/dL) 30 H Creatinine (0.7 - 1.2 mg/dL) 2.2 H Estimated GFR (>60 ml/min) 29 L Glucose (65 - 99 mg/dL) 121 H Calcium (8.4 - 10.2 mg/dL) 9.0 Phosphorus (2.5 - 4.5 mg/dL) 3.1 Magnesium (1.6 - 2.3 mg/dL) 1.6 Total Bilirubin (0.2 - 1.3 mg/dL) 1.0 AST (17 - 59 U/L) 15 L ALT (21 - 72 U/L) 32 Albumin (3.5 - 5.0 g/dL) 2.6 L Coagulation PT (9.4 - 12.5 SEC) 12.1 INR (0.90 - 1.17) 1.11 Hematology CBC w Diff NO MAN DIFF REQ WBC (4.8 - 10.8 /CUMM) 4.4 L RBC (4.70 - 6.10 /CUMM) 3.83 L Hgb (14.0 - 18.0 G/DL) 10.9 L Hct (42 - 52 %) 32.7 L MCV (80.0 - 94.0 FL) 85.3 MCH (27.0 - 31.0 PG) 28.5 MCHC (33.0 - 37.0 G/DL) 33.4 RDW (11.5 - 14.5 %) 14.7 H Plt Count (130 - 400 /CUMM) 97 L MPV (7.4 - 10.4 FL) 7.6 Gran % (42.2 - 75.2 %) 67.7 Lymphocytes % (20.5 - 51.1 %) 23.6 Monocytes % (1.7 - 9.3 %) 7.6 Eosinophils % (0 - 5 %) 0.8 Basophils % (0.0 - 2.0 %) 0.3 Absolute Granulocytes (1.4 - 6.5 /CUMM) 3.0 Absolute Lymphocytes (1.2 - 3.4 /CUMM) 1.0 L Absolute Monocytes (0.10 - 0.60 /CUMM) 0.3 Absolute Eosinophils (0.0 - 0.7 /CUMM) 0 Absolute Basophils (0.0 - 0.2 /CUMM) 0 07/21 1300 Hematology CBC w Diff NO MAN DIFF REQ Cancelled WBC (4.8 - 10.8 /CUMM) 6.3 Cancelled RBC (4.70 - 6.10 /CUMM) 3.83 L Cancelled Hgb (14.0 - 18.0 G/DL) 11.1 L Cancelled Hct (42 - 52 %) 33.0 L Cancelled MCV (80.0 - 94.0 FL) 86.2 Cancelled MCH (27.0 - 31.0 PG) 28.9 Cancelled MCHC (33.0 - 37.0 G/DL) 33.5 Cancelled RDW (11.5 - 14.5 %) 14.8 H Cancelled Plt Count (/CUMM) Cancelled MPV (7.4 - 10.4 FL) Cancelled Gran % (42.2 - 75.2 %) 70.4 Lymphocytes % (20.5 - 51.1 %) 22.0 Monocytes % (1.7 - 9.3 %) 6.8 Eosinophils % (0 - 5 %) 0.5 Basophils % (0.0 - 2.0 %) 0.3 Absolute Granulocytes (1.4 - 6.5 /CUMM) 3.8 Absolute Lymphocytes (1.2 - 3.4 /CUMM) 1.2 Absolute Monocytes (0.10 - 0.60 /CUMM) 0.4 Absolute Eosinophils (0.0 - 0.7 /CUMM) 0 Absolute Basophils (0.0 - 0.2 /CUMM) 0 07/21 07/21 07/21 0745 0730 0700 Chemistry Sodium (137 - 145 mmol/L) 143 Potassium (3.5 - 5.1 mmol/L) 4.4 Chloride (98 - 107 mmol/L) 109 H Carbon Dioxide (22 - 30 mmol/L) 23 Anion Gap (5 - 16) 11 BUN (9 - 20 mg/dL) 36 H Creatinine (0.7 - 1.2 mg/dL) 2.3 H Estimated GFR (>60 ml/min) 27 L Glucose (65 - 99 mg/dL) 190 H Lactic Acid (0.7 - 2.1 mmol/L) 1.5 Calcium (8.4 - 10.2 mg/dL) 9.2 Phosphorus (2.5 - 4.5 mg/dL) 3.3 Magnesium (1.6 - 2.3 mg/dL) 1.6 Total Bilirubin (0.2 - 1.3 mg/dL) 1.3 AST (17 - 59 U/L) 14 L ALT (21 - 72 U/L) 29 Troponin I Cancelled Albumin (3.5 - 5.0 g/dL) 2.8 L Coagulation PT (9.4 - 12.5 SEC) 12.7 H INR (0.90 - 1.17) 1.16 APTT Cancelled Hematology CBC w Diff NO MAN DIFF REQ WBC (4.8 - 10.8 /CUMM) 4.7 L RBC (4.70 - 6.10 /CUMM) 3.98 L Hgb (14.0 - 18.0 G/DL) 11.5 L Hct (42 - 52 %) 34.3 L MCV (80.0 - 94.0 FL) 86.2 MCH (27.0 - 31.0 PG) 28.9 MCHC (33.0 - 37.0 G/DL) 33.5 RDW (11.5 - 14.5 %) 14.6 H Plt Count (130 - 400 /CUMM) 96 L MPV (7.4 - 10.4 FL) 7.9 Gran % (42.2 - 75.2 %) 82.9 H Lymphocytes % (20.5 - 51.1 %) 11.0 L Monocytes % (1.7 - 9.3 %) 5.8 Eosinophils % (0 - 5 %) 0.1 Basophils % (0.0 - 2.0 %) 0.2 Absolute Granulocytes (1.4 - 6.5 /CUMM) 3.9 Absolute Lymphocytes (1.2 - 3.4 /CUMM) 0.5 L Absolute Monocytes (0.10 - 0.60 /CUMM) 0.3 Absolute Eosinophils (0.0 - 0.7 /CUMM) 0 Absolute Basophils (0.0 - 0.2 /CUMM) 0 07/21 07/21 07/21 0500 0352 0100 Chemistry Sodium (137 - 145 mmol/L) 140 Potassium (3.5 - 5.1 mmol/L) 4.1 Chloride (98 - 107 mmol/L) 109 H Carbon Dioxide (22 - 30 mmol/L) 23 Anion Gap (5 - 16) 8 BUN (9 - 20 mg/dL) 36 H Creatinine (0.7 - 1.2 mg/dL) 2.4 H Estimated GFR (>60 ml/min) 26 L BUN/Creatinine Ratio (7 - 25 %) 15.0 Glucose (65 - 99 mg/dL) 171 H Lactic Acid (0.7 - 2.1 mmol/L) Cancelled 2.3 H Calcium (8.4 - 10.2 mg/dL) 9.2 Magnesium (1.6 - 2.3 mg/dL) 1.6 Total Bilirubin (0.2 - 1.3 mg/dL) 0.6 AST (17 - 59 U/L) 18 ALT (21 - 72 U/L) 35 Alkaline Phosphatase (< 127 U/L) 77 Troponin I (<0.11 ng/ml) 0.04 Total Protein (6.3 - 8.2 g/dL) 5.1 L Albumin (3.5 - 5.0 g/dL) 2.8 L Globulin (1.9 - 4.2 gm/dL) 2.3 Albumin/Globulin Ratio (1.1 - 2.2 %) 1.2 Coagulation PT (9.4 - 12.5 SEC) 11.9 24.3 H INR (0.90 - 1.17) 1.09 2.21 H APTT (25 - 37 SEC) 33 Hematology CBC w Diff NO MAN DIFF REQ WBC (4.8 - 10.8 /CUMM) 5.7 RBC (4.70 - 6.10 /CUMM) 4.56 L Hgb (14.0 - 18.0 G/DL) 12.8 L Hct (42 - 52 %) 39.4 L MCV (80.0 - 94.0 FL) 86.4 MCH (27.0 - 31.0 PG) 28.1 MCHC (33.0 - 37.0 G/DL) 32.5 L RDW (11.5 - 14.5 %) 15.1 H Plt Count (130 - 400 /CUMM) 99 L MPV (7.4 - 10.4 FL) 7.5 Gran % (42.2 - 75.2 %) 83.3 H Lymphocytes % (20.5 - 51.1 %) 13.9 L Monocytes % (1.7 - 9.3 %) 2.0 Eosinophils % (0 - 5 %) 0.7 Basophils % (0.0 - 2.0 %) 0.1 Absolute Granulocytes (1.4 - 6.5 /CUMM) 4.8 Absolute Lymphocytes (1.2 - 3.4 /CUMM) 0.8 L Absolute Monocytes (0.10 - 0.60 /CUMM) 0.1 Absolute Eosinophils (0.0 - 0.7 /CUMM) 0 Absolute Basophils (0.0 - 0.2 /CUMM) 0
--- NOTE | 2017-07-22 14:30 | Transfer of Care Summary ---
Hospital Course Course Hospital Course: Mr. 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 He did not have any abdominal pain, nausea or vomiting. No prior similar complaints in the past. Last colonoscopy did not have any abnormal lesions, as per the pt ( report unavailable at this time ). As per the patient and his family, he had several episodes of bloody bowel movement prior to the hospital visit, and also had one large bloody movement with approximately 1500 mL as per the H&P. Since he had chronic renal insufficiency and an acute GI bleed, he received K Centra and FFP's while he was in the ED. Hemodynamics remained stable. At the time of admission-temperature 95.5, pulse rate 88, blood pressure 102/76 , pulse ox 89% on room air which improved to blood pressure 128/63, 96% on room air. Pertinent lab findings: W BC 5.7 (07/21/2017) Hemoglobin 12.8--11.5 Hematocrit 39.4--34.3, platelets (chronic thrombocytopenia 102-117k) 99-->96. Sodium 143, potassium 4.4, chloride 109, creatinine 2.3 Lactic acid 2.3-->1.5 INR 2.21--> 1.09 (s/p 2 FFP's and PCC ) CT abdomen and pelvis 07/21/2017: 1. Colonic and small bowel diverticulosis, without definite free air. 2. Left lower pole renal calculi without hydronephrosis. Status post right nephrectomy. 3. Trace right pleural effusion. Last Echocardiogram done in 02/13/2017 revealed Normal size left ventricle. Left ventricular wall thickness mildly increased. Borderline normal left ventricular ejection fraction estimated at 50-55%. Right ventricular systolic pressure estimated to be elevated at 45 mmHg. Etiology in his case that led to profuse lower GI bleed could likely be due to an acute diverticular bleed, but other causes such as AVMs are not completely ruled out. An upper GI bleed that traversed really fast could be possible but unlikely. Malignancy is in the differential, but no history suggestive of colonic malignancy. Problem list: #1 acute blood loss anemia #2 history of atrial fibrillation #3 history of dementia #4 thrombocytopenia #5 history of BPH #1Respiratory: Stable at this time. Continue to monitor #2 infectious-stable at this time. Continue to monitor PVCs. #3 circulatION. his antihypertensives were held at the beginning but as blood pressure remained stable and then become elevated he was resumed on his home medications including losartan and metoprolol 12.5 mg twice a day. Cardiology was also consulted and agreed with resuming his antihypertensives. Patient was found to be in atrial fibrillation but given GI bleed they were held and on colonoscopy was found to have polyps status post polypectomy and per GI recommendations we have to hold her anticoagulation for total of 72 hours and could be resumed on 07/24/2017. Of note patient is on Coumadin 3 mg daily at home. #4 hematology-monitor H&H closely given his GI bleed. At the beginning patient was given 2 FFP's and also was transfused with 1 pack red cells as INR was elevated to 2.21 at the beginning. He was also given vitamin K. H&H remained stable afterwards. #5 metabolic-he has chronic renal insufficiency which continues to be stable at this time. Avoid fluid overload in him. #6 alimentary-he has a GI bleed, which likely is lower GI. He's been prepped with AnamLY for lower scope E/colonoscopy. [address] Colonoscopy showed: 1. Findings suggestive of a resolving diverticular bleed. 2. 11 polyps status post removal via hot snare polypectomy. 3. Approximately 5 diminutive [address] left in place. 4. Small internal hemorrhoids. 5. No active bleeding appreciated. Housekeeping: No central line No antibiotics No catheter DVT prophylaxis-Alps. High-fiber heart healthy diet CODE STATUS DNR/DNI Complications: none Significant Procedures: Colonoscopy Procedure Medical History: unchanged (see meditech consult) Mental Status: alert/oriented Heart/Lung Eval Prior to Sedation: within normal limits Candidate for Sedation? Yes Date of Last Colonoscopy: 2005 Procedure Date: 07/21/17 Procedure Type: colonoscopy w/polypectomy [employer] As[employer]er: Jose Grant MD ASA Classification: III Indications: Hematochezia. Instrument (Colonoscope): single channel Meds Received: MAC Patient's Tolerance: good Complications: none Extent Reached: cecum Prep: good Procedure: The risks of a colonoscopy was explained to the patient including, but not limited to, the risks of perforation, bleeding and/or a missed lesion and then written informed consent was obtained. After getting written informed consent the patient was placed in the left lateral decubitus position with pulse oximetry, cardiac monitoring, and supplemental oxygen was given. IV sedation was given until the desired effect was achieved. A rectal exam was performed which was normal. A high definition variable stiffness Olympus colonoscope was then inserted into the anus and advanced to the cecum with little difficulty. Retroflexed views were obtained and photodocumentation was obtained. Close inspection of the colonic mucosa was performed on insertion and withdrawal of the colonoscope with a withdrawal time that was adequate in length to closely inspect all folds and rosenthal of the colon. Findings: There were several scattered diverticula appreciated in the sigmoid and descending colon, but none of the visualized diverticula had stigmata of recent hemorrhage. There was no blood appreciated within the colon and there was bile seen coming from the ileocecal valve albeit the terminal ileum was not able to be intubated. There were numerous polyps scattered throughout the colon. In the sigmoid colon there was a 5 mm and 8 mm sessile polyp, in the descending colon there was a 7 mm sessile polyp, at the hepatic flexure there were two 1 cm pedunculated polyps and 5 mm sessile polyp, and there were 5 polyps in the ascending colon ranging in size from 5 mm to 1 cm. As there was no active bleeding appreciated all of those polyps were removed with snare polypectomy and monopolar cautery and were retrieved through the anus and through the scope and were sent to pathology for further evaluation. There were also approximately 5 diminutive polyps appreciated throughout the colon that were left intact. The remainder the visualized colonic mucosa was grossly unremarkable. There were no masses, or AVMs appreciated. Retroflexed views in the rectum revealed prominent internal hemorrhoids. Impression: 1. Findings suggestive of a resolving diverticular bleed. 2. 11 polyps status post removal via hot snare polypectomy. 3. Approximately [address] left in place. 4. Small internal hemorrhoids. 5. No active bleeding appreciated. Recommendations: 1. Would continue ICU monitoring today, but if he remains without active bleeding would transfer him to the medical floor. 2. Follow CBCs to 12 hours and transfuse as needed to maintain hemoglobin greater than 8. 3. Would hold his Coumadin for an additional 48-72 hours considering the polypectomies. 4. He should follow up the pathology results with me as an outpatient. 5. Advance diet as tolerated. 6. Notify GI for signs of overt hemodynamically significant GI bleeding. 7. Consideration may given to repeat his colonoscopy in 3 years for surveillance if it is clinically appropriate at that time. Followup Colonscopy Screen In: 3 years Assessment/Plan: as above
[2017-07-22 16:00] VITALS: BP 142/80
[2017-07-22 22:00] VITALS: BP 150/90
[2017-07-23 06:44] LABS: ABSOLUTE BASOPHIL COUNT 0 /CUMM (0.0-0.2); ABSOLUTE EOSINOPHIL COUNT 0.1 /CUMM (0.0-0.7); ABSOLUTE GRANULOCYTE CT 3.1 /CUMM (1.4-6.5); ABSOLUTE MONOCYTE COUNT 0.4 /CUMM (0.10-0.60); BASOPHIL % 0.4 % (0.0-2.0); EOSINOPHIL % 1.6 % (0-5); GRANULOCYTE % 67.9 % (42.2-75.2); HEMATOCRIT 34.5 % (42-52); MEAN CORPUSCULAR HGB 28.9 PG (27.0-31.0); MEAN CORPUSCULAR HGB CONC 33.2 G/DL (33.0-37.0); MEAN CORPUSCULAR VOLUME 87.1 FL (80.0-94.0); MEAN PLATELET VOLUME 8.1 FL (7.4-10.4); PLATELET COUNT 104 /CUMM (130-400); RED BLOOD CELL CT 3.96 /CUMM (4.70-6.10); WHITE BLOOD CELL COUNT 4.5 /CUMM (4.8-10.8)
[2017-07-23 06:48] LABS: PT 11.5 SEC (9.4-12.5)
--- NOTE | 2017-07-23 07:27 | PN- CRCU ---
Subjective HPI/Critical Care Issues: #1 acute blood loss anemia most likely diverticular bleed #2 history of atrial fibrillation #3 history of dementia #4 thrombocytopenia #5 history of BPH 24 hour events Patient was seen and examined this morning. He was lying comfortably on bed without any significant complaints. He had no bleeding per rectum episodes anymore. He remained hemodynamically stable Objective Current Medications: Current Medications Sig/Sylvie Start time Last Medication Dose Route Stop Time Status Admin Acetaminophen 1,000 MG Q8P PRN 07/21 0315 AC N/A 1 UNIT IV Atorvastatin Calcium 20 MG 1700 07/22 1700 AC 07/22 PO 1649 Doxazosin Mesylate 2 MG QPM 07/21 2315 AC 07/22 PO 2104 Furosemide 20 MG DAILY NEEDED PRN 07/22 0845 AC 07/22 PO 0930 Losartan Potassium 25 MG DAILY 07/22 0900 AC 07/23 PO 0930 Metoprolol Tartrate 12.5 MG BID 07/22 2100 DC PO Metoprolol Tartrate 12.5 MG BID 07/22 1000 AC 07/23 PO 0930 Ondansetron HCl 4 MG Q6P PRN 07/21 0315 AC IV Pantoprazole Sodium 40 MG BID 07/21 0300 DC 07/23 IV 07/23 0901 0930 Vital Signs & I&O Last 24 Hrs of Vitals and I&O: Vital Signs Date Time Temp Pulse Resp B/P B/P Pulse O2 O2 Flow FiO2 Mean Ox Delivery Rate 07/23 0930 69 120/60 07/23 0930 69 120/60 07/23 0800 97.4 80 16 140/80 95 Room Air 07/23 0000 Room Air 07/22 2200 97.5 81 18 150/90 97 Room Air 07/22 2105 97.5 81 18 150/90 07/22 2000 Room Air 07/22 1600 97.5 86 22 142/80 95 Room Air 07/22 1600 95 Room Air Intake & Output 07/23 1600 07/23 0800 07/23 0000 Intake Total 100 200 Output Total 600 350 Balance -500 -150 Intake, Oral 100 200 Output, Urine 600 350 Exam General Appearance: well developed/nourished, no apparent distress, alert, awake Head: atraumatic, normal appearance Neck: supple Respiratory: chest non-tender, no respiratory distress Cardiovascular: edema, irregularly irregular Abdomen: soft, non-tender, no organomegaly Back: normal inspection Extremities: bilateral 1+ lower extremity edema Results Last 24 Hrs of Lab Results: Laboratory Tests 07/23/17 0515: Anion Gap 8, Estimated GFR 26 L, Glucose 137 H, Calcium 9.3, Phosphorus 3.0, Magnesium 1.5 L, Total Bilirubin 0.8, AST 14 L, ALT 22, Albumin 2.8 L, PT 11.5, INR 1.05, CBC w Diff NO MAN DIFF REQ, RBC 3.96 L, MCV 87.1, MCH 28.9, MCHC 33.2, RDW 15.0 H, MPV 8.1, Gran % 67.9, Lymphocytes % 21.2, Monocytes % 8.9, Eosinophils % 1.6, Basophils % 0.4, Absolute Granulocytes 3.1, Absolute Lymphocytes 1.0 L, Absolute Monocytes 0.4, Absolute Eosinophils 0.1, Absolute Basophils 0 07/22/17 1800: CBC w Diff Cancelled, WBC Cancelled, RBC Cancelled, Hgb Cancelled, Hct Cancelled , MCV Cancelled, MCH Cancelled, MCHC Cancelled, RDW Cancelled, Plt Count Cancelled, MPV Cancelled Impression/Plan Impression/Plan Impression/Plan: Mr. 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 He did not have any abdominal pain, nausea or vomiting. No prior similar complaints in the past. Last colonoscopy did not have any abnormal lesions, as per the pt ( report unavailable at this time ). As per the patient and his family, he had several episodes of bloody bowel movement prior to the hospital visit, and also had one large bloody movement with approximately 1500 mL as per the H&P. Since he had chronic renal insufficiency and an acute GI bleed, he received K Centra and FFP's while he was in the ED. Hemodynamics remained stable. At the time of admission-temperature 95.5, pulse rate 88, blood pressure 102/76 , pulse ox 89% on room air which improved to blood pressure 128/63, 96% on room air. Pertinent lab findings: W BC 5.7 (07/21/2017) Hemoglobin 12.8--11.5 Hematocrit 39.4--34.3, platelets (chronic thrombocytopenia 102-117k) 99-->96. Sodium 143, potassium 4.4, chloride 109, creatinine 2.3 Lactic acid 2.3-->1.5 INR 2.21--> 1.09 (s/p 2 FFP's and PCC ) CT abdomen and pelvis 07/21/2017: 1. Colonic and small bowel diverticulosis, without definite free air. 2. Left lower pole renal calculi without hydronephrosis. Status post right nephrectomy. 3. Trace right pleural effusion. Last Echocardiogram done in 02/13/2017 revealed Normal size left ventricle. Left ventricular wall thickness mildly increased. Borderline normal left ventricular ejection fraction estimated at 50-55%. Right ventricular systolic pressure estimated to be elevated at 45 mmHg. Etiology in his case that led to profuse lower GI bleed could likely be due to an acute diverticular bleed, but other causes such as AVMs are not completely ruled out. An upper GI bleed that traversed really fast could be possible but unlikely. Malignancy is in the differential, but no history suggestive of colonic malignancy. Problem list: #1 acute blood loss anemia #2 history of atrial fibrillation #3 history of dementia #4 thrombocytopenia #5 history of BPH Respiratory: Stable at this time. Continue to monitor #2 infectious-stable at this time. Continue to monitor PVCs. #3 circulated- Continue his antihypertensive at his home dose. #4 hematology-monitor H&H closely given his GI bleed. The reason for his low platelet count is unclear at this time. Would restart his anticoagulation tomorrow morning after 72 hours of his polypectomy. #5 metabolic-He has chronic renal insufficiency (CKD stage IV)which continues to be stable at this time. #6 alimentary-he has a GI bleed, status post colonoscopy revealed resolving diverticular bleed. He was also noted to have been polyps status post polypectomy. Patient will follow up with Dr. Grant as outpatient for follow- up. DVT prophylaxis-Alps. CODE STATUS DNR/DNI
[2017-07-23 08:00] VITALS: BP 140/80
--- NOTE | 2017-07-23 08:49 | PN- Cardiology ---
Subjective Subjective: Patient feels well. He is eating breakfast. He denies chest pain or shortness of breath. Review of Systems: Eyes no blurred or double vision Ears no deafness or ringing Nose and throat no recurrent sinusitis Lungs per history of present illness Heart per history of present illness Abdomen no nausea vomiting Musculoskeletal occasional muscle and joint pains Psych no anxiety or depression Neuro without recurrent headache or seizures Endocrine no heat or cold intolerance Objective Vital Signs and I&Os Vital Signs Date Time Temp Pulse Resp B/P B/P Pulse O2 O2 Flow FiO2 Mean Ox Delivery Rate 07/23 0000 Room Air 07/22 2200 97.5 81 18 150/90 97 Room Air 07/22 2105 97.5 81 18 150/90 07/22 2000 Room Air 07/22 1600 97.5 86 22 142/80 95 Room Air 07/22 1600 95 Room Air 07/22 1200 94 Room Air 07/22 1104 87 143/80 07/22 0927 80 164/90 Intake & Output 07/23 1600 07/23 0800 07/23 0000 07/22 1600 07/22 0800 07/22 0000 Intake Total 100 200 456 930 0795 Output Total 600 350 800 450 500 Balance -500 -150 50 -200 535 Intake, IV 130 175 Intake, Oral 100 200 850 120 860 Number 3 1 0 Bowel Movements Output, Urine 600 350 800 450 500 Physical Exam: Patient is a well-developed well-nourished male appearing in no acute distress HEENT is unremarkable Neck is supple there is no JVD Lungs are clear Heart irregular rhythm S1 and S2 are normal no murmurs gallops or rubs Abdomen bowel sounds positive Extremities without edema Current Medications: Current Medications Sig/Sylvie Start time Last Medication Dose Route Stop Time Status Admin Acetaminophen 1,000 MG Q8P PRN 07/21 0315 AC N/A 1 UNIT IV Atorvastatin Calcium 20 MG 1700 07/22 1700 AC 07/22 PO 1649 Doxazosin Mesylate 2 MG QPM 07/21 2315 AC 07/22 PO 2104 Furosemide 20 MG DAILY NEEDED PRN 07/22 0845 AC 07/22 PO 0930 Losartan Potassium 25 MG DAILY 07/22 0900 AC 07/22 PO 0927 Magnesium Sulfate 1 GM ONCE ONE 07/22 0545 DC 07/22 Dextrose/Water 100 ML IV 07/22 0944 0547 Metoprolol Tartrate 12.5 MG BID 07/22 2100 DC PO Metoprolol Tartrate 12.5 MG BID 07/22 1000 AC 07/22 PO 2104 Metoprolol Tartrate 25 MG BID 07/21 2126 DC 07/21 PO 213 Ondansetron HCl 4 MG Q6P PRN 07/215 AC IV Pantoprazole Sodium 40 MG BID 07/21 0300 AC 07/22 IV 07/23 0901 2105 Results Last 48 Hrs of Labs/Mics: Laboratory Tests 07/23/17 0515: Anion Gap 8, Estimated GFR 26 L, Glucose 137 H, Calcium 9.3, Phosphorus 3.0, Magnesium 1.5 L, Total Bilirubin 0.8, AST 14 L, ALT 22, Albumin 2.8 L, PT 11.5, INR 1.05, CBC w Diff NO MAN DIFF REQ, RBC 3.96 L, MCV 87.1, MCH 28.9, MCHC 33.2, RDW 15.0 H, MPV 8.1, Gran % 67.9, Lymphocytes % 21.2, Monocytes % 8.9, Eosinophils % 1.6, Basophils % 0.4, Absolute Granulocytes 3.1, Absolute Lymphocytes 1.0 L, Absolute Monocytes 0.4, Absolute Eosinophils 0.1, Absolute Basophils 0 07/22/17 1800: CBC w Diff Cancelled, WBC Cancelled, RBC Cancelled, Hgb Cancelled, Hct Cancelled , MCV Cancelled, MCH Cancelled, MCHC Cancelled, RDW Cancelled, Plt Count Cancelled, MPV Cancelled 07/22/17 0840: PT 12.1, INR 1.11 07/22/17 0428: Anion Gap 9, Estimated GFR 29 L, Glucose 121 H, Calcium 9.0, Phosphorus 3.1, Magnesium 1.6, Total Bilirubin 1.0, AST 15 L, ALT 32, Albumin 2.6 L, CBC w Diff NO MAN DIFF REQ, RBC 3.83 L, MCV 85.3, MCH 28.5, MCHC 33.4, RDW 14.7 H, MPV 7.6, Gran % 67.7, Lymphocytes % 23.6, Monocytes % 7.6, Eosinophils % 0.8, Basophils % 0.3, Absolute Granulocytes 3.0, Absolute Lymphocytes 1.0 L, Absolute Monocytes 0.3, Absolute Eosinophils 0, Absolute Basophils 0 07/21/172009: CBC w Diff NO MAN DIFF REQ, RBC 3.83 L, MCV 86.2, MCH 28.9, MCHC 33.5, RDW 14.8 H, MPV , Gran % 70.4, Lymphocytes % 22.0, Monocytes % 6.8, Eosinophils % 0.5, Basophils % 0.3, Absolute Granulocytes 3.8, Absolute Lymphocytes 1.2, Absolute Monocytes 0.4, Absolute Eosinophils 0, Absolute Basophils 0 07/21/17 1300: CBC w Diff Cancelled, WBC Cancelled, RBC Cancelled, Hgb Cancelled, Hct Cancelled , MCV Cancelled, MCH Cancelled, MCHC Cancelled, RDW Cancelled, Plt Count Cancelled, MPV Cancelled Telemetry reviewed atrial fibrillation with brief pauses during sleep Assessment/Plan Assessment/Plan 1. GI bleed with colonoscopy showing likely resolving diverticular bleed 2. Chronic atrial fibrillation on Coumadin 3. History of mild nonischemic cardiomyopathy 4. History of chronic renal insufficiency 5. hx of renal cancer with a prior nephrectomy 6. History of ascending aortic aneurysm 7. prior DVT with IVC filter in place 8. History of partial lung resection 9. History of hypertension/hyperlipidemia Recommendations 1. Would resume Coumadin when cleared by GI 2. Continue current antihypertensive medications Patient is stable from a cardiac standpoint Continue telemetry? Yes
--- NOTE | 2017-07-23 10:00 | PN- Att Addend ---
Attending Addendum Attending Brief Note Patient offers no complaints, "wants to go home" vital signs are stable no fever or changes on physical. As per GI will continue 1 more day of anticoagulation, restart Coumadin in the morning and after that start disposition plans. There doesn't seem to be in any acute bleeding at this time. His hemoglobin and hematocrit are stable his BUN and creatinine a reflection of his chronic kidney insufficiency probably stage IV Intake & Output 07/23 1600 07/23 0400 07/22 1600 07/22 04007/21 1600 07/21 040 Intake Total 533 499 4425 1035 4830 632 Output Total 415 098 7554 500 300 Balance -500 -150 -548 764 8805 632 Intake, Blood 350 632 Product Intake, IV 130 175 880 Intake, Oral 100 200 355 856 8347 Number 4 0 6 1 Bowel Movements Output, Urine 037 617 4818 500 300 Patient 249 lb 212 lb Weight Weight Bed scale Measurement Method Current Medications Sig/Sylvie Start time Last Medication Dose Route Stop Time Status Admin Acetaminophen 1,000 MG Q8P PRN 07/21 031 AC N/A 1 UNIT IV Atorvastatin Calcium 20 MG 1700 07/22 1700 AC 07/22 PO 1649 Doxazosin Mesylate 2 MG QPM 07/21 2315 AC 07/22 PO 2104 Furosemide 20 MG DAILY NEEDED PRN 07/22 0845 AC 07/22 PO 0930 Losartan Potassium 25 MG DAILY 07/22 0900 AC 07/23 PO 0930 Metoprolol Tartrate 12.5 MG BID 07/22 2100 DC PO Metoprolol Tartrate 12.5 MG BID 07/22 1000 AC 07/23 PO 0930 Ondansetron HCl 4 MG Q6P PRN 07/21 0315 AC IV Pantoprazole Sodium 40 MG BID 07/21 0300 DC 07/23 IV 07/23 0901 0930 Laboratory Tests 07/23/17 0515: Anion Gap 8, Estimated GFR 26 L, Glucose 137 H, Calcium 9.3, Phosphorus 3.0, Magnesium 1.5 L, Total Bilirubin 0.8, AST 14 L, ALT 22, Albumin 2.8 L, PT 11.5, INR 1.05, CBC w Diff NO MAN DIFF REQ, RBC 3.96 L, MCV 87.1, MCH 28.9, MCHC 33.2, RDW 15.0 H, MPV 8.1, Gran % 67.9, Lymphocytes % 21.2, Monocytes % 8.9, Eosinophils % 1.6, Basophils % 0.4, Absolute Granulocytes 3.1, Absolute Lymphocytes 1.0 L, Absolute Monocytes 0.4, Absolute Eosinophils 0.1, Absolute Basophils 0 07/22/17 1800: CBC w Diff Cancelled, WBC Cancelled, RBC Cancelled, Hgb Cancelled, Hct Cancelled , MCV Cancelled, MCH Cancelled, MCHC Cancelled, RDW Cancelled, Plt Count Cancelled, MPV Cancelled 07/22/17 0840: PT 12.1, INR 1.11 07/22/17 0428: Anion Gap 9, Estimated GFR 29 L, Glucose 121 H, Calcium 9.0, Phosphorus 3.1, Magnesium 1.6, Total Bilirubin 1.0, AST 15 L, ALT 32, Albumin 2.6 L, CBC w Diff NO MAN DIFF REQ, RBC 3.83 L, MCV 85.3, MCH 28.5, MCHC 33.4, RDW 14.7 H, MPV 7.6, Gran % 67.7, Lymphocytes % 23.6, Monocytes % 7.6, Eosinophils % 0.8, Basophils % 0.3, Absolute Granulocytes 3.0, Absolute Lymphocytes 1.0 L, Absolute Monocytes 0.3, Absolute Eosinophils 0, Absolute Basophils 0 07/21/17 2010: CBC w Diff NO MAN DIFF REQ, RBC 3.83 L, MCV 86.2, MCH 28.9, MCHC 33.5, RDW 14.8 H, MPV , Gran % 70.4, Lymphocytes % 22.0, Monocytes % 6.8, Eosinophils % 0.5, Basophils % 0.3, Absolute Granulocytes 3.8, Absolute Lymphocytes 1.2, Absolute Monocytes 0.4, Absolute Eosinophils 0, Absolute Basophils 0 07/21/17 1300: CBC w Diff Cancelled, WBC Cancelled, RBC Cancelled, Hgb Cancelled, Hct Cancelled , MCV Cancelled, MCH Cancelled, MCHC Cancelled, RDW Cancelled, Plt Count Cancelled, MPV Cancelled 07/21/17 0745: Anion Gap 11, Estimated GFR 27 L, Glucose 190 H, Lactic Acid 1.5, Calcium 9.2, Phosphorus 3.3, Magnesium 1.6, Total Bilirubin 1.3, AST 14 L, ALT 29, Albumin 2.8 L, PT 12.7 H, INR 1.16, CBC w Diff NO MAN DIFF REQ, RBC 3.98 L, MCV 86.2, MCH 28.9, MCHC 33.5, RDW 14.6 H, MPV 7.9, Gran % 82.9 H, Lymphocytes % 11.0 L , Monocytes % 5.8, Eosinophils % 0.1, Basophils % 0.2, Absolute Granulocytes 3.9 , Absolute Lymphocytes 0.5 L, Absolute Monocytes 0.3, Absolute Eosinophils 0, Absolute Basophils 0 07/21/17 0730: Troponin I Cancelled 07/21/17 0700: APTT Cancelled 07/21/17 0500: PT 11.9, INR 1.09 07/21/17 0352: Lactic Acid Cancelled 07/21/17 0100: Anion Gap 8, Estimated GFR 26 L, BUN/Creatinine Ratio 15.0, Glucose 171 H, Lactic Acid 2.3 H, Calcium 9.2, Magnesium 1.6, Total Bilirubin 0.6, AST 18, ALT 35, Alkaline Phosphatase 77, Troponin I 0.04, Total Protein 5.1 L, Albumin 2.8 L, Globulin 2.3, Albumin/Globulin Ratio 1.2, PT 24.3 H, INR 2.21 H, APTT 33, CBC w Diff NO MAN DIFF REQ, RBC 4.56 L, MCV 86.4, MCH 28.1, MCHC 32.5 L, RDW 15.1 H, MPV 7.5, Gran % 83.3 H, Lymphocytes % 13.9 L, Monocytes % 2.0, Eosinophils % 0.7, Basophils % 0.1, Absolute Granulocytes 4.8, Absolute Lymphocytes 0.8 L, Absolute Monocytes 0.1, Absolute Eosinophils 0, Absolute Basophils 0 Microbiology 07/21 714 UPPER RESP: Surveillance Culture - COMP 07/21 714 GI: Surveillance Culture - COMP Vital Signs Date Time Temp Pulse Resp B/P B/P Pulse O2 O2 Flow FiO2 Mean Ox Delivery Rate 07/23 0930 69 120/60 07/23 0930 69 120/60 07/23 0800 97.4 80 16 140/80 95 Room Air 07/23 0000 Room Air 07/22 2200 97.5 81 18 150/90 97 Room Air 07/22 2105 97.5 81 18 150/90 07/22 2000 Room Air 07/22 1600 97.5 86 22 142/80 95 Room Air 07/22 1600 95 Room Air 07/22 1200 94 Room Air 07/22 1104 87 143/80 Pathology reports pending.
[2017-07-23 16:00] VITALS: BP 130/80
[2017-07-23 22:03] VITALS: BP 152/88
[2017-07-24 05:43] LABS: ABSOLUTE BASOPHIL COUNT 0 /CUMM (0.0-0.2); ABSOLUTE EOSINOPHIL COUNT 0.1 /CUMM (0.0-0.7); ABSOLUTE LYMPH COUNT 1.1 /CUMM (1.2-3.4); ABSOLUTE MONOCYTE COUNT 0.4 /CUMM (0.10-0.60); BASOPHIL % 0.1 % (0.0-2.0); EOSINOPHIL % 1.4 % (0-5); GRANULOCYTE % 65.7 % (42.2-75.2); HEMATOCRIT 32.7 % (42-52); MEAN CORPUSCULAR HGB 29.2 PG (27.0-31.0); MEAN CORPUSCULAR HGB CONC 33.5 G/DL (33.0-37.0); MEAN CORPUSCULAR VOLUME 87.2 FL (80.0-94.0); MEAN PLATELET VOLUME 7.7 FL (7.4-10.4); PLATELET COUNT 101 /CUMM (130-400); RBC DISTRIBUTION WIDTH 14.7 % (11.5-14.5); RED BLOOD CELL CT 3.75 /CUMM (4.70-6.10); WHITE BLOOD CELL COUNT 4.6 /CUMM (4.8-10.8)
[2017-07-24 05:49] LABS: PT 11.2 SEC (9.4-12.5)
--- NOTE | 2017-07-24 07:26 | PN- CRCU ---
Subjective HPI/Critical Care Issues: #1 acute blood loss anemia most likely diverticular bleed #2 history of atrial fibrillation #3 history of dementia #4 thrombocytopenia #5 history of BPH 24 hour events Patient was seen and examined this morning. He was lying comfortably on bed without any significant complaints. He had no bleeding per rectum episodes anymore. He remained hemodynamically stable. We will restart his coumadin today and watch for bleeding and monitor his INR. Objective Current Medications: Current Medications Sig/Sylvie Start time Last Medication Dose Route Stop Time Status Admin Acetaminophen 1,000 MG Q8P PRN 07/21 0315 AC N/A 1 UNIT IV Atorvastatin Calcium 20 MG 1700 07/22 1700 AC 07/23 PO 1618 Doxazosin Mesylate 2 MG QPM 07/21 2315 AC 07/23 PO 2157 Furosemide 20 MG DAILY NEEDED PRN 07/22 0845 AC 07/22 PO 0930 Losartan Potassium 25 MG DAILY 07/22 0900 AC 07/23 PO 0930 Magnesium Chloride 64 MG BID 07/23 1433 DC 07/23 PO 07/23 2101 2158 Metoprolol Tartrate 12.5 MG BID 07/22 1000 AC 07/23 PO 2157 Omeprazole 40 MG DAILY AC 07/24 0700 AC 07/24 PO 0505 Ondansetron HCl 4 MG Q6P PRN 07/21 0315 AC IV Pantoprazole Sodium 40 MG BID 07/21 0300 DC 07/23 IV 07/23 0901 0930 Warfarin Sodium 3 MG COUMADIN 1700 ONE 07/24 1700 AC PO 07/24 1701 Vital Signs & I&O Last 24 Hrs of Vitals and I&O: Vital Signs Date Time Temp Pulse Resp B/P B/P Pulse O2 O2 Flow FiO2 Mean Ox Delivery Rate 07/23 2202 98.6 91 18 152/88 96 Room Air Room Air 07/23 215 91 152/88 07/23 1600 97.5 84 18 130/80 93 Room Air 07/23 0930 69 120/60 07/23 0930 69 120/60 Intake & Output 07/24 1600 07/24 0800 07/24 0000 Intake Total 200 200 Output Total 550 300 Balance -350 -100 Intake, Oral 200 200 Number 0 Bowel Movements Output, Urine 550 300 Exam General Appearance: alert, awake, comfortable Head: atraumatic Neck: supple Respiratory: normal breath sounds, chest non-tender, no respiratory distress Cardiovascular: edema, irregularly irregular Abdomen: soft, non-tender, no organomegaly Back: normal inspection Results Last 24 Hrs of Lab Results: Laboratory Tests 07/24/17 0500: Anion Gap 10, Estimated GFR 25 L, BUN/Creatinine Ratio 14.0, Magnesium 1.5 L, PT 11.2, INR 1.03, CBC w Diff NO MAN DIFF REQ, RBC 3.75 L, MCV 87.2, MCH 29.2, MCHC 33.5, RDW 14.7 H, MPV 7.7, Gran % 65.7, Lymphocytes % 24.3, Monocytes % 8.5, Eosinophils % 1.4, Basophils % 0.1, Absolute Granulocytes 3.0, Absolute Lymphocytes 1.1 L, Absolute Monocytes 0.4, Absolute Eosinophils 0.1, Absolute Basophils 0 Impression/Plan Impression/Plan Impression/Plan: Mr. 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 He did not have any abdominal pain, nausea or vomiting. No prior similar complaints in the past. Last colonoscopy did not have any abnormal lesions, as per the pt ( report unavailable at this time ). As per the patient and his family, he had several episodes of bloody bowel movement prior to the hospital visit, and also had one large bloody movement with approximately 1500 mL as per the H&P. Since he had chronic renal insufficiency and an acute GI bleed, he received K Centra and FFP's while he was in the ED. Hemodynamics remained stable. At the time of admission-temperature 95.5, pulse rate 88, blood pressure 102/76 , pulse ox 89% on room air which improved to blood pressure 128/63, 96% on room air. Pertinent lab findings: W BC 5.7 (07/21/2017) Hemoglobin 12.8--11.5 Hematocrit 39.4--34.3, platelets (chronic thrombocytopenia 102-117k) 99-->96. Sodium 143, potassium 4.4, chloride 109, creatinine 2.3 Lactic acid 2.3-->1.5 INR 2.21--> 1.09 (s/p 2 FFP's and PCC ) CT abdomen and pelvis 07/21/2017: 1. Colonic and small bowel diverticulosis, without definite free air. 2. Left lower pole renal calculi without hydronephrosis. Status post right nephrectomy. 3. Trace right pleural effusion. Last Echocardiogram done in 02/13/2017 revealed Normal size left ventricle. Left ventricular wall thickness mildly increased. Borderline normal left ventricular ejection fraction estimated at 50-55%. Right ventricular systolic pressure estimated to be elevated at 45 mmHg. Etiology in his case that led to profuse lower GI bleed could likely be due to an acute diverticular bleed, but other causes such as AVMs are not completely ruled out. An upper GI bleed that traversed really fast could be possible but unlikely. Malignancy is in the differential, but no history suggestive of colonic malignancy. Problem list: #1 acute blood loss anemia #2 history of atrial fibrillation #3 history of dementia #4 thrombocytopenia #5 history of BPH Respiratory: Stable at this time. Continue to monitor #2 infectious-stable at this time. Continue to monitor PVCs. #3 circulated- Continue his antihypertensive at his home dose. #4 hematology-monitor H&H closely given his GI bleed. The reason for his low platelet count is unclear at this time. Would restart his anticoagulation today after 72 hours of his polypectomy. #5 metabolic-He has chronic renal insufficiency (CKD stage IV)which continues to be stable at this time. #6 alimentary-he has a GI bleed, status post colonoscopy revealed resolving diverticular bleed. He was also noted to have been polyps status post polypectomy. Patient will follow up with Dr. Grant as outpatient for follow- up. DVT prophylaxis-Alps. CODE STATUS DNR/DNI
[2017-07-24 08:00] VITALS: BP 120/80
[2017-07-24] MEDS ORDERED: OMEPRAZOLE20 M2 PO (12:10)
--- NOTE | 2017-07-24 12:14 | Patient Discharge Instructions ---
Discharge Instructions General Discharge Information You were seen/treated for: acute blood loss anemia most likely diverticular bleed You had these procedures: colonoscopy Watch for these problems: bleeding per rectum black tarry stool Special Instructions: please follow-up with your primary care physician Dr. Spain in 2 days and follow-up INR. Please follow-up with Dr. Grant for histopathology report in 1-2 weeks of discharge in his office please watch for any bleeding per rectum or black tarry stool and return back to ER Diet Recommended Diet: Heart Healthy Activity Additional ACTIVITY Info: As tolerated Acute Coronary Syndrome Inclusion Criteria At DC or during hospital stay patient has or had the following: ACS DIAGNOSIS No Discharge Core Measures Meds if any: Prescribed or Continued at Discharge Meds if any: NOT Prescribed or Continued at Discharge Congestive Heart Failure Inclusion Criteria At DC or during hospital stay patient has or had the following: CHF DIAGNOSIS No Discharge Core Measures Meds if any: Prescribed or Continued at Discharge Meds if any: NOT Prescribed or Continued at Discharge Cerebrovascular accident Inclusion Criteria At DC or during hospital stay patient has or had the following: CVA/TIA Diagnosis No Discharge Core Measures Meds if any: Prescribed or Continued at Discharge Meds if any: NOT Prescribed or Continued at Discharge Venous thromboembolism Inclusion Criteria VTE Diagnosis No VTE Type NONE VTE Confirmed by (Test) NONE Discharge Core Measures - Per Current guidelines, there needs to be overlap - treatment for the first 5 days of Warfarin therapy. - If discharged on Warfarin prior to 5 days of - overlap therapy, the patient will need to be - assessed for post discharge needs including - *Post discharge parental anticoagulation - *Warfarin and/or parental anticoagulation education - *Follow up date to check INR post discharge At least 5 days overlap therapy as Inpatient No Meds if any: Prescribed or Continued at Discharge Note: Overlap Therapy is Warfarin and Anticoagulant Meds if any: NOT Prescribed or Continued at Discharge
--- NOTE | 2017-07-24 14:01 | PN- Att Addend ---
Attending Addendum Attending Brief Note Patient sitting in the chair, no obvious bleeding and vital signs are stable with no fever. No new changes on physical exam. 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 Intake & Output 07/24 1600 07/24 0400 07/23 1600 07/23 0400 07/22 1600 07/22 0400 Intake Total 100 300 932 596 8531 1035 Output Total 850 5725 014 4297 500 Balance 100 -550 -670 -150 -150 535 Intake, IV 30 130 175 Intake, Oral 100 300 500 200 970 860 Number 0 1 4 0 Bowel Movements Output, Urine 850 8313 909 2935 500 Current Medications Sig/Sylvie Start time Last Medication Dose Route Stop Time Status Admin Acetaminophen 1,000 MG Q8P PRN 07/21 0315 AC N/A 1 UNIT IV Atorvastatin Calcium 20 MG 1700 07/22 1700 AC 07/23 PO 1618 Doxazosin Mesylate 2 MG QPM 07/21 2315 AC 07/23 PO 2157 Furosemide 20 MG DAILY NEEDED PRN 07/22 0845 AC 07/22 PO 0930 Losartan Potassium 25 MG DAILY 07/22 0900 AC 07/24 PO 0919 Magnesium Chloride 64 MG BID 07/23 1433 DC 07/23 PO 07/23 2101 2158 Metoprolol Tartrate 12.5 MG BID 07/22 1000 AC 07/24 PO 0919 Omeprazole 40 MG DAILY AC 07/24 0700 AC 07/24 PO 0505 Ondansetron HCl 4 MG Q6P PRN 07/21 0315 AC IV Warfarin Sodium 3 MG COUMADIN 1700 ONE 07/24 1700 DC PO 07/24 1701 Warfarin Sodium 3 MG 1200 ONE 07/24 1200 DC 07/24 PO 07/24 1201 1128 Laboratory Tests 07/24/17 0500: Anion Gap 10, Estimated GFR 25 L, BUN/Creatinine Ratio 14.0, Magnesium 1.5 L, PT 11.2, INR 1.03, CBC w Diff NO MAN DIFF REQ, RBC 3.75 L, MCV 87.2, MCH 29.2, MCHC 33.5, RDW 14.7 H, MPV 7.7, Gran % 65.7, Lymphocytes % 24.3, Monocytes % 8.5, Eosinophils % 1.4, Basophils % 0.1, Absolute Granulocytes 3.0, Absolute Lymphocytes 1.1 L, Absolute Monocytes 0.4, Absolute Eosinophils 0.1, Absolute Basophils 0 07/23/17 0515: Anion Gap 8, Estimated GFR 26 L, Glucose 137 H, Calcium 9.3, Phosphorus 3.0, Magnesium 1.5 L, Total Bilirubin 0.8, AST 14 L, ALT 22, Albumin 2.8 L, PT 11.5, INR 1.05, CBC w Diff NO MAN DIFF REQ, RBC 3.96 L, MCV 87.1, MCH 28.9, MCHC 33.2, RDW 15.0 H, MPV 8.1, Gran % 67.9, Lymphocytes % 21.2, Monocytes % 8.9, Eosinophils % 1.6, Basophils % 0.4, Absolute Granulocytes 3.1, Absolute Lymphocytes 1.0 L, Absolute Monocytes 0.4, Absolute Eosinophils 0.1, Absolute Basophils 0 07/22/17 1800: CBC w Diff Cancelled, WBC Cancelled, RBC Cancelled, Hgb Cancelled, Hct Cancelled , MCV Cancelled, MCH Cancelled, MCHC Cancelled, RDW Cancelled, Plt Count Cancelled, MPV Cancelled 07/22/17 0840: PT 12.1, INR 1.11 07/22/17 0428: Anion Gap 9, Estimated GFR 29 L, Glucose 121 H, Calcium 9.0, Phosphorus 3.1, Magnesium 1.6, Total Bilirubin 1.0, AST 15 L, ALT 32, Albumin 2.6 L, CBC w Diff NO MAN DIFF REQ, RBC 3.83 L, MCV 85.3, MCH 28.5, MCHC 33.4, RDW 14.7 H, MPV 7.6, Gran % 67.7, Lymphocytes % 23.6, Monocytes % 7.6, Eosinophils % 0.8, Basophils % 0.3, Absolute Granulocytes 3.0, Absolute Lymphocytes 1.0 L, Absolute Monocytes 0.3, Absolute Eosinophils 0, Absolute Basophils 0 07/21/172009: CBC w Diff NO MAN DIFF REQ, RBC 3.83 L, MCV 86.2, MCH 28.9, MCHC 33.5, RDW 14.8 H, MPV , Gran % 70.4, Lymphocytes % 22.0, Monocytes % 6.8, Eosinophils % 0.5, Basophils % 0.3, Absolute Granulocytes 3.8, Absolute Lymphocytes 1.2, Absolute Monocytes 0.4, Absolute Eosinophils 0, Absolute Basophils 0 Vital Signs Date Time Temp Pulse Resp B/P B/P Pulse O2 O2 Flow FiO2 Mean Ox Delivery Rate 07/24 09 82 120/80 07/24 0919 82 120/80 07/24 0800 98.0 82 18 120/80 97 Room Air 07/23 2203 98.6 91 18 152/88 96 Room Air Room Air 07/23 2157 91 152/88 07/23 1600 97.5 84 18 130/80 93 Room Air
[2017-07-24 16:00] VITALS: BP 122/50
== END 2017-07-24 16:56 | DRG 378 ==
LOC: ERH 00:12 → CRI 02:14 → ERHI 02:14 → ENRESERV 03:24 → CANRESERV 03:24 → ENRESERV 05:26 → CRI 05:49 → ENTRNSPT 07-24 16:43 → CRI 07-24 16:56 → EDTRNSPT 07-24 17:00 → CMPTRNSPT 07-24 17:01
PROVIDERS: Emergency Medicine; Internal Medicine; Internal Medicine Endocrinology, Diabetes & Metabolism
PROC: 30233N1 Transfusion of Nonautologous Red Blood Cells into Peripheral Vein, Percutaneous Approach (ICD-10-PCS; principal; 2017-07-21)
PROC: 30233K1 Transfusion of Nonautologous Frozen Plasma into Peripheral Vein, Percutaneous Approach (ICD-10-PCS; 2017-07-21)
PROC: 0DBN8ZX Excision of Sigmoid Colon, Via Natural or Artificial Opening Endoscopic, Diagnostic (ICD-10-PCS; 2017-07-21)
PROC: 0DBM8ZX Excision of Descending Colon, Via Natural or Artificial Opening Endoscopic, Diagnostic (ICD-10-PCS; 2017-07-21)
DX: K57.33 Diverticulitis of large intestine without perforation or abscess with bleeding (principal); D62 Acute posthemorrhagic anemia; D69.6 Thrombocytopenia, unspecified; I42.8 Other cardiomyopathies; N18.4 Chronic kidney disease, stage 4 (severe); I48.2 Chronic atrial fibrillation; F03.90 Unspecified dementia, unspecified severity, without behavioral disturbance, psychotic disturbance, mood disturbance, and anxiety; B00.89 Other herpesviral infection; I42.9 Cardiomyopathy, unspecified; K92.1 Melena; Z79.01 Long term (current) use of anticoagulants; Z86.718 Personal history of other venous thrombosis and embolism; Z95.828 Presence of other vascular implants and grafts; I12.9 Hypertensive chronic kidney disease with stage 1 through stage 4 chronic kidney disease, or unspecified chronic kidney disease; Z72.0 Tobacco use; Z96.653 Presence of artificial knee joint, bilateral; E78.5 Hyperlipidemia, unspecified; N40.0 Benign prostatic hyperplasia without lower urinary tract symptoms; Z90.5 Acquired absence of kidney; Z90.49 Acquired absence of other specified parts of digestive tract; R63.4 Abnormal weight loss; R79.1 Abnormal coagulation profile; Z66 Do not resuscitate
CPT/HCPCS: CCU; 36415; 71045; 74176; 82436; 86920; 93005; 93010; 93970; 96365; 96372; 96375; C9132; J0131; J2405; P9016